=== PATIENT | female | born 1980 | race African-American/Black ===

== ENCOUNTER 2021-07-03 19:09 | Observation (INO) ==
[2021-07-03] MEDS ORDERED: SODIUM CHLORIDE 0.9% 1000ML 1,000 ML IV ONE (19:37)
[2021-07-03 19:57] LABS: Basophils # (auto) 0.01 K/uL (0-0.2); Basophils % (auto) 0.2 %; Eosinophils % (auto) 3.5 %; Hematocrit (blood only) 33.7 % (37-47); Immature Granulocytes # (auto) 0.01 K/uL (0.00-0.02); Immature Granulocytes % (auto) 0.2 %; Lymphocytes # (auto) 2.14 K/uL (1.2-3.4); Lymphocytes % (auto) 37.2 %; Mean Corpuscular Hemoglobin 26.4 pg (25-34); Mean Corpuscular Hgb Conc 32.6 g/dL (32-36); Mean Corpuscular Volume 80.8 fL (80-100); Mean Platelet Volume 10.6 fL (7.4-10.4); Monocytes # (auto) 0.49 K/uL (0.11-0.59); Monocytes % (auto) 8.5 %; Neutrophils # (auto) 2.91 K/uL (1.4-6.5); Neutrophils % (auto) 50.4 %; Platelet Count 260 K/uL (130-400); RDW Coefficient of Variation 15.1 % (11.5-14.5); RDW Standard Deviation 44.7 fL (36.4-46.3); Red Blood Count 4.17 M/uL (4.2-5.4); White Blood Count 5.76 K/uL (4.8-10.8)
[2021-07-03 20:07] LABS: Appearance Urine Clear (Clear); Bilirubin Urine Negative (Negative); Blood Urine Negative (Negative); Color Urine Yellow; Glucose Urine UA Negative (Negative); Ketones Urine Negative (Negative); Leukocyte Esterase Urine Negative (Negative); Nitrite Urine Negative (Negative); Protein Urine Negative (Negative); Specific Gravity Urine 1.023 (1.000-1.030); Urobilinogen Urine Negative (Negative); pH Urine 6.5 (4.5-7.5)
--- NOTE | 2021-07-03 20:07 | Emergency Department Note ---
Impression & Plan Hyperthyroidism, Chest pain, Palpitations, Leg edema ED Provider Note NAME: CLAIRE DELGADO AGE: 41 SEX: F : 1980 ARRIVES VIA: Walk-In INFORMANT: Patient ED PROVIDER(S): Galindo Castellon DO CHIEF COMPLAINT: palpitations and chest pain HPI: Patient is a 41-year-old female who presents to the ER for chest pain and palpitations. She notes the palpitations have been going on for the past 3 to 4 days. Chest pressure has been present for the past 24 hours. She was seen in [facility] and referred in. She just moved here recently to the area. She has a history of Graves' disease. She has not been taking any of her medications for thyroid in over 2 months. She denies any belly pain, nausea, vomiting, or diarrhea. No dysuria, urgency, or frequency. No other exacerbating or remitting factors. No arm or jaw pain. Patient denies diabetes, hypertension, hyperlipidemia, CAD, history of sudden at a young age, and smoking. She admits to mild edema in the lower extremities. ROS: See above HPI for pertinent positives & negatives. A total of 10 systems reviewed and were otherwise negative. PAST MEDICAL HISTORY:See Below PAST SURGICAL HISTORY:See Below FAMILY HISTORY:See Below SOCIAL HISTORY:See Below HOME MEDICATIONS:See Below ALLERGIES:See Below VITALS:See Below PHYSICAL EXAMINATION: GENERAL: Sitting up in bed, alert, well appearing, well nourished, no distress, non-toxic EYE EXAM: normal conjunctiva. OROPHARYNX: no exudate, no erythema, lips, buccal mucosa, and tongue normal and mucous membranes are moist NECK: supple, no nuchal rigidity, no adenopathy, non-tender LUNGS: Clear to auscultation. Normal chest wall mechanics HEART: no murmurs, S1 normal and S2 normal ABDOMEN: abdomen soft, non-tender, normo-active bowel sounds, no masses, no rebound or guarding. UPPER EXTREMITIES: upper extremities are grossly normal. LOWER EXTREMITIES: Left calf slightly larger than right. Pitting edema bilaterally NEURO EXAM: Normal sensorium, cranial nerves II-XII grossly intact, normal speech, no gross weakness of arms, no gross weakness of legs. MEDICAL DECISION MAKING: Patient is a 41-year-old female who presents ER for above-stated complaint. IV was established blood was obtained. She was referred in for thyroid storm. She was slightly tachycardic upon presentation has mild pitting edema. Labs show no significant leukocytosis. Mild anemia 11. BMP with mild hypokalemia at 3.3. LFTs bilirubin was unremarkable. Troponin was negative. Lipase negative. TSH was nearly undetectable and free T4 was 5. UA was clean. COVID was negative. She was given IV fluids. EKG was nondiagnostic. Discussed with Dr. Petty who in regards to setting her up with an outpatient follow-up versus observation as she does not have an established PCP. He elected to admit her for further work- up. Triage Nursing notes reviewed. Limited review of prior medical records performed Vital Signs: reviewed and remarkable for no significant abnormalities Differential diagnosis: Differential diagnoses includes but is not limited to acute coronary syndrome, myocardial infarction, pericarditis, pulmonary embolus, aortic dissection, pneumonia, pneumothorax, musculoskeletal, shingles, esophageal. ER treatment provided: See below Diagnostics interpreted by me: ECG: Sinus tachycardia rate of 102 Normal axis No PVCs QTC 448 Cardiac Monitoring: An order was placed for continuous cardiac monitoring. The monitor shows a rate of 96 with sinus rhythm. Laboratory studies: As stated above and show below. Imaging studies: Portable AP upright 1 view of the chest was unremarkable Consultation(s): Discussed with Dr. Vizcarra for further evaluation Procedures: none Critical Care: None Past Med/Surg History Social History Smoking Status: Current every day smoker Preferred Language: Hungarian Feels Safe at Home: Yes Allergies Allergies Allergy/AdvReac Type Severity Reaction Status Date / Time No Known Allergies Allergy Verified 07/03/21 20:38 Home Meds Home Medications Medication Instructions Recorded Confirmed Maria Esther Vitamin 1 tab PO DAILY 07/03/21 07/03/21 Huang Women's Daily Vitamin 1 tab PO DAILY 07/03/21 07/03/21 atenolol 25 mg tablet 25 mg PO DAILY 07/03/21 07/03/21 propylthiouracil 50 mg tablet 100 mg PO TID 07/03/21 07/03/21 Results & Data (ED) Vital Signs Vital Signs - 24 hr 07/03/21 19:15 07/03/21 20:00 07/03/21 20:26 Temperature 36.6 C Temperature Source Oral Pulse Rate 108 H 100 H Respiratory Rate 20 17 Respiratory Effort / Characteristics Non-Labored Spontaneous Respiratory Depth Normal Blood Pressure 140/77 152/74 H Blood Pressure Mean 98 100 Pulse Oximetry 99 100 98 Oxygen Delivery Method Room Air Room Air Sepsis New/Unexplained Change in Mental Status N/A Sepsis Action Taken by Nursing No Action Required 07/03/21 20:31 07/03/21 21:00 07/03/21 21:30 Temperature Temperature Source Pulse Rate 93 H 99 H 92 H Respiratory Rate 18 20 16 Respiratory Effort / Characteristics Respiratory Depth Blood Pressure 152/84 H 148/62 H 150/75 H Blood Pressure Mean 106 90 100 Pulse Oximetry 100 99 99 Oxygen Delivery Method Room Air Sepsis New/Unexplained Change in Mental Status Sepsis Action Taken by Nursing 07/03/21 22:00 07/03/21 23:00 Temperature Temperature Source Pulse Rate 90 92 H Respiratory Rate 20 20 Respiratory Effort / Characteristics Respiratory Depth Blood Pressure 135/78 124/88 Blood Pressure Mean 97 100 Pulse Oximetry 99 99 Oxygen Delivery Method Sepsis New/Unexplained Change in Mental Status Sepsis Action Taken by Nursing Laboratory Data Result diagrams: 07/03/21 19:32 07/03/21 19:32 Lab Results 07/03/21 07/03/21 07/03/21 Range/Units 19:32 19:32 19:32 WBC 5.76 (4.8-10.8) K/uL RBC 4.17 L (4.2-5.4) M/uL Hgb 11.0 L (12.0-16.0) g/dL Hct 33.7 L (37-47) % MCV 80.8 (80-100) fL MCH 26.4 (25-34) pg MCHC 32.6 (32-36) g/dL RDW Std Deviation 44.7 (36.4-46.3) fL RDW Coeff of Huy 15.1 H (11.5-14.5) % Plt Count 260 (130-400) K/uL MPV 10.6 H (7.4-10.4) fL Immature Gran % (Auto) 0.2 % Neut % (Auto) 50.4 % Lymph % (Auto) 37.2 % [place] % (Auto) 8.5 % Eos % (Auto) 3.5 % Baso % (Auto) 0.2 % Neut # (Auto) 2.91 (1.4-6.5) K/uL Lymph # (Auto) 2.14 (1.2-3.4) K/uL [place] # (Auto) 0.49 (0.11-0.59) K/uL Eos # (Auto) 0.20 (0-0.5) K/uL Baso # (Auto) 0.01 (0-0.2) K/uL Immature Gran # (Auto) 0.01 (0.00-0.02) K/uL D-Dimer (0-500) ug/L FEU Sodium 141 (136-145) mmol/L Potassium 3.3 L (3.5-5.1) mmol/L Chloride 111 H (98-107) mmol/L Carbon Dioxide 25 (21-32) mmol/L Anion Gap 5 (3-11) BUN 15 (6-23) mg/dl Creatinine 0.42 L (0.6-1.2) mg/dl Est Cr Clr Drug Dosing 204.5 ml/min Est GFR ( Amer) 148.6 ml/min Est GFR (Non-Af Amer) 128.2 ml/min BUN/Creatinine Ratio 35.7 H (10-20) Glucose 83 (70-99(Fasting)) mg/dl Calcium 9.1 (8.5-10.1) mg/dl Total Bilirubin 0.3 (0.2-1.0) mg/dl AST 22 (13-39) U/L ALT 24 (7-52) U/L Alkaline Phosphatase 60 (34-104) U/L Troponin I High Sens 7.4 (0-14) pg/ml Total Protein 6.5 (6.0-8.3) gm/dl Albumin 3.8 (3.4-5.0) gm/dl Globulin 2.7 (2.5-4.0) gm/dl Albumin/Globulin Ratio 1.4 (0.9-2) Lipase 28 (11-82) U/L TSH (0.300-4.500) uIu/ml Free T4 (0.61-1.60) ng/dl Urine Color Urine Appearance (Clear) Urine pH (4.5-7.5) Ur Specific [place] (1.000-1.030) Urine Protein (Negative) Urine Glucose (UA) (Negative) Urine Ketones (Negative) Urine Blood (Negative) Urine Nitrite (Negative) Urine Bilirubin (Negative) Urine Urobilinogen (Negative) Ur Leukocyte Esterase (Negative) SARS-CoV-2, RNA, NAAT (NEGATIVE) 07/03/21 07/03/21 07/03/21 Range/Units 19:32 19:32 19:35 WBC (4.8-10.8) K/uL RBC (4.2-5.4) M/uL Hgb (12.0-16.0) g/dL Hct (37-47) % MCV (80-100) fL MCH (25-34) pg MCHC (32-36) g/dL RDW Std Deviation (36.4-46.3) fL RDW Coeff of Huy (11.5-14.5) % Plt Count (130-400) K/uL MPV (7.4-10.4) fL Immature Gran % (Auto) % Neut % (Auto) % Lymph % (Auto) % [place] % (Auto) % Eos % (Auto) % Baso % (Auto) % Neut # (Auto) (1.4-6.5) K/uL Lymph # (Auto) (1.2-3.4) K/uL [place] # (Auto) (0.11-0.59) K/uL Eos # (Auto) (0-0.5) K/uL Baso # (Auto) (0-0.2) K/uL Immature Gran # (Auto) (0.00-0.02) K/uL D-Dimer 340 (0-500) ug/L FEU Sodium (136-145) mmol/L Potassium (3.5-5.1) mmol/L Chloride (98-107) mmol/L Carbon Dioxide (21-32) mmol/L Anion Gap (3-11) BUN (6-23) mg/dl Creatinine (0.6-1.2) mg/dl Est Cr Clr Drug Dosing ml/min Est GFR ( Amer) ml/min Est GFR (Non-Af Amer) ml/min BUN/Creatinine Ratio (10-20) Glucose (70-99(Fasting)) mg/dl Calcium (8.5-10.1) mg/dl Total Bilirubin (0.2-1.0) mg/dl AST (13-39) U/L ALT (7-52) U/L Alkaline Phosphatase (34-104) U/L Troponin I High Sens (0-14) pg/ml Total Protein (6.0-8.3) gm/dl Albumin (3.4-5.0) gm/dl Globulin (2.5-4.0) gm/dl Albumin/Globulin Ratio (0.9-2) Lipase (11-82) U/L TSH < 0.010 L (0.300-4.500) uIu/ml Free T4 4.93 H (0.61-1.60) ng/dl Urine Color Yellow Urine Appearance Clear (Clear) Urine pH 6.5 (4.5-7.5) Ur Specific [place] 1.023 (1.000-1.030) Urine Protein Negative (Negative) Urine Glucose (UA) Negative (Negative) Urine Ketones Negative (Negative) Urine Blood Negative (Negative) Urine Nitrite Negative (Negative) Urine Bilirubin Negative (Negative) Urine Urobilinogen Negative (Negative) Ur Leukocyte Esterase Negative (Negative) SARS-CoV-2, RNA, NAAT (NEGATIVE) 07/03/21 07/03/21 Range/Units 19:55 21:26 WBC (4.8-10.8) K/uL RBC (4.2-5.4) M/uL Hgb (12.0-16.0) g/dL Hct (37-47) % MCV (80-100) fL MCH (25-34) pg MCHC (32-36) g/dL RDW Std Deviation (36.4-46.3) fL RDW Coeff of Huy (11.5-14.5) % Plt Count (130-400) K/uL MPV (7.4-10.4) fL Immature Gran % (Auto) % Neut % (Auto) % Lymph % (Auto) % [place] % (Auto) % Eos % (Auto) % Baso % (Auto) % Neut # (Auto) (1.4-6.5) K/uL Lymph # (Auto) (1.2-3.4) K/uL [place] # (Auto) (0.11-0.59) K/uL Eos # (Auto) (0-0.5) K/uL Baso # (Auto) (0-0.2) K/uL Immature Gran # (Auto) (0.00-0.02) K/uL D-Dimer (0-500) ug/L FEU Sodium (136-145) mmol/L Potassium (3.5-5.1) mmol/L Chloride (98-107) mmol/L Carbon Dioxide (21-32) mmol/L Anion Gap (3-11) BUN (6-23) mg/dl Creatinine (0.6-1.2) mg/dl Est Cr Clr Drug Dosing ml/min Est GFR ( Amer) ml/min Est GFR (Non-Af Amer) ml/min BUN/Creatinine Ratio (10-20) Glucose (70-99(Fasting)) mg/dl Calcium (8.5-10.1) mg/dl Total Bilirubin (0.2-1.0) mg/dl AST (13-39) U/L ALT (7-52) U/L Alkaline Phosphatase (34-104) U/L Troponin I High Sens 7.6 (0-14) pg/ml Total Protein (6.0-8.3) gm/dl Albumin (3.4-5.0) gm/dl Globulin (2.5-4.0) gm/dl Albumin/Globulin Ratio (0.9-2) Lipase (11-82) U/L TSH (0.300-4.500) uIu/ml Free T4 (0.61-1.60) ng/dl Urine Color Urine Appearance (Clear) Urine pH (4.5-7.5) Ur Specific [place] (1.000-1.030) Urine Protein (Negative) Urine Glucose (UA) (Negative) Urine Ketones (Negative) Urine Blood (Negative) Urine Nitrite (Negative) Urine Bilirubin (Negative) Urine Urobilinogen (Negative) Ur Leukocyte Esterase (Negative) SARS-CoV-2, RNA, NAAT NEGATIVE (NEGATIVE) Administered Medications Hydrocortisone Sodium Succinate (Hydrocortisone Sod Succinate 100 Mg/2 Ml Vial) 100 mg IV TID [facility] Stop: 08/02/21 22:54 Last Admin: 07/03/21 23:13 Dose: 100 mg Documented by: [id number] Metoprolol Tartrate (Metoprolol Tartrate 1 Mg/Ml Vial) 2.5 mg IV Q6 [facility]; Protocol Stop: 08/03/21 00:00 Last Admin: 07/04/21 00:05 Dose: 2.5 mg Documented by: [id number] Propylthiouracil (Propylthiouracil 50 Mg Tab) 200 mg PO Q4H ZABRINA Stop: 08/02/21 22:54 Last Admin: 07/03/21 23:48 Dose: 200 mg Documented by: [id number] Discontinued Medications Sodium Chloride (Nss 1000ml) 1,000 mls @ 999 mls/hr IV .Q1H1M ONE Stop: 07/03/21 20:37 Last Infusion: 07/03/21 20:54 Dose: 0 mls/hr Documented by: [id number] Admin: 07/03/21 19:51 Dose: 999 mls/hr Documented by: [id number] Potassium Chloride (Potassium Chloride Crtab 20 Meq Tabcr) 40 meq PO NOW STA Stop: 07/03/21 20:43 Last Admin: 07/03/21 20:48 Dose: 40 meq Documented by: [id number] Propranolol HCl (Propranolol Hcl 80 Mg Tab) 80 mg PO NOW STA Stop: 07/03/21 22:57 Last Admin: 07/03/21 23:21 Dose: Not Given Documented by: [id number] Imaging Data Radiologist's Impression: Chest X-Ray 07/03/21 19:37 XR chest 1V portable CLINICAL HISTORY: Tachycardia. COMPARISON STUDY: No previous studies for comparison. FINDINGS: Lung volumes are normal. Lungs are clear. There is no pneumothorax or pleural effusion. There is borderline enlargement of the cardiac silhouette, ac centuated on this AP exam. Mediastinal contours are normal. There is no evidence for pulmonary edema. IMPRESSION: 1. No acute cardiopulmonary findings. 2. Borderline enlargement of the cardiac silhouette, accentuated on this AP exam. ACT 112: Negative or not required by law. Electronically signed by: Alden Paz M.D. 07/03/2021 8:12 PM Discharge Plan Visit Data Chief Complaint: Referred by Doctor Stated Complaint: [facility] SENT, THYROID CRISIS ED Provider: Galindo Castellon Discharge Problem: Hyperthyroidism, Chest pain, Palpitations, Leg edema Forms Stand Alone Forms: My [facility] [email or web address] Prescriptions Prescriptions: No Action propylthiouracil 50 mg tablet 100 mg PO TID RF: 0 atenolol 25 mg tablet 25 mg PO DAILY RF: 0 Maria Esther Vitamin 1 tab PO DAILY RF: 0 Huang Women's Daily Vitamin 1 tab PO DAILY RF: 0 Referrals Referrals: PCP,NO [Primary Care Provider] - Discharge Problem: Chest pain Qualifiers: Chest pain type: unspecified Qualified Code(s): R07.9 - Chest pain, unspecified
--- NOTE | 2021-07-03 20:15 | XRay Report ---
XR chest 1V portable CLINICAL HISTORY: Tachycardia. COMPARISON STUDY: No previous studies for comparison. FINDINGS: Lung volumes are normal. Lungs are clear. There is no pneumothorax or pleural effusion. The re is borderline enlargement of the cardiac silhouette, accentuated on this AP exam. Mediastinal cont ours are normal. There is no evidence for pulmonary edema. IMPRESSION: 1. No acute cardiopulmonary findings. 2. Borderline enlargement of the cardiac silhouette, accentuated on this AP exam. ACT 112: Negative or not required by law. Electronically signed by: Alden Paz M.D. 07/03/2021 8:12 PM
[2021-07-03 20:22] LABS: Albumin Globulin Ratio 1.4 (0.9-2); Albumin Level 3.8 gm/dl (3.4-5.0); BUN Creatinine Ratio 35.7 (10-20); Bilirubin,Total 0.3 mg/dl (0.2-1.0); Calcium 9.1 mg/dl (8.5-10.1); Creatinine Clr Calc Pharmacy 204.5 ml/min; Est GFR (African American) 148.6 ml/min; Est GFR (Non-African American) 128.2 ml/min; Globulin 2.7 gm/dl (2.5-4.0); Potassium 3.3 mmol/L (3.5-5.1); Total Protein 6.5 gm/dl (6.0-8.3)
[2021-07-03 20:31] LABS: D Dimer 340 ug/L FEU (0-500)
[2021-07-03] MEDS ORDERED: POTASSIUM CHLORIDE CRTAB 20 MEQ TABCR PO STA (20:42)
[2021-07-03 20:48] LABS: Thyroid Stimulating Hormone < 0.010 uIu/ml (0.300-4.500)
[2021-07-03 21:20] LABS: T4 Free Thyroxine 4.93 ng/dl (0.61-1.60)
[2021-07-03] MEDS ORDERED: CHOLESTYRAMINE LIGHT 4 GM PKT PO SCH (22:55)
[2021-07-03] MEDS ORDERED: HYDROCORTISONE SOD SUCCINATE 100 MG/2 ML VIAL IV SCH (22:55)
[2021-07-03] MEDS ORDERED: PROPRANOLOL HCL 80 MG TAB PO STA (22:56)
[2021-07-03] MEDS: propylthiouraciL 50 MG TAB PO SCH (23:48)
[2021-07-04] MEDS: METOPROLOL TARTRATE 1 MG/ML VIAL IV SCH ×2 (00:05→06:04)
[2021-07-04] MEDS ORDERED: ACETAMINOPHEN 325 MG TAB PO PRN (00:34)
[2021-07-04] MEDS ORDERED: NITROGLYCERIN SL 0.4 MG/TAB TAB SL PRN (00:34)
--- NOTE | 2021-07-04 01:33 | History and Physical Report ---
DATE OF ADMISSION: 07/03/2021. CHIEF COMPLAINT: Tachycardia, noncompliant with hyperthyroidism medications. HISTORY OF PRESENT ILLNESS: A 41-year-old female with past medical history significant for hyperthyroidism. The patient says she was diagnosed over 5 years ago. Not taking medications regularly. She says she forgets taking them and she is not taking her atenolol and propylthiouracil for the last few months, ongoing tobacco abuse. She moved to local area in February, trying to establish with the local doctors. Went to [facility] because she was having palpitations, some chest discomfort, shakiness and also she noticed some on and off shortness of breath for the last few days and also lower extremity edema for the last few days and was sent in here. Denies any fever, has some chills. She says she is sweating when she is sleeping. Currently, she is slightly tachycardic, afebrile, saturating okay. Resting comfortably. Denies any headache, no earache, no runny nose, no sore throat, no cough. Appetite is okay. No difficulty swallowing. Has some nausea. No vomiting, no abdominal pain, no diarrhea. No blood in stools or black stools. She says she is constantly micturating. Currently hemodynamically stable. ALLERGIES: No known drug allergies. PAST MEDICAL HISTORY: As mentioned above. PAST SURGICAL HISTORY: No past surgical history on file. MEDICATIONS: Supposed to be on atenolol and propylthiouracil. FAMILY HISTORY: Significant for diabetes, hypertension, cancer. SOCIAL HISTORY: Smokes half pack a day for last 21 years. Alcohol occasional. No drug use. REVIEW OF SYSTEMS: As per HPI. Rest of the review of systems is negative. PHYSICAL EXAMINATION: GENERAL: The patient is obese, not in acute distress. VITAL SIGNS: Temperature 36.6, pulse ranging from 108 to 90, respiratory rate 20, blood pressure 135/78, oxygen 99% on room air. HEENT: Pupils equal, round and reactive to light. Oral mucosa moist. NECK: No JVD, no neck masses. CARDIOVASCULAR: S1 and S2 heard. Tachycardia. No murmurs. RESPIRATORY: Normal AP diameter. No accessory muscle use. No wheezing, no crackles. ABDOMEN: Soft, bowel sounds present, nontender, no distention. CENTRAL NERVOUS SYSTEM: Cranial nerves II through XII are grossly intact, nonfocal. EXTREMITIES: Mild pedal edema, no erythema seen. LABORATORY DATA: WBC 5.7, hemoglobin 11, hematocrit 33.7, platelets 260. D- dimer 340. Sodium 141, potassium 3.3, chloride 111, CO2 of 25, BUN 15, creatinine 0.4, serum glucose 83, calcium 9.1, total bilirubin 0.3, AST 22, ALT 24, alkaline phosphatase 60. troponin high sensitivity 7.6, lipase 28. TSH less than 0.010, free T4 of 4.93. Urinalysis negative. SARS-CoV-2 rapid test negative. IMAGING DATA: Chest x-ray, no acute cardiopulmonary findings. EKG: Sinus tachycardia at a rate of 102. No acute ST changes seen. ASSESSMENT AND PLAN: This is a 41-year-old female who presents with thyrotoxicosis, noncompliant with medication. 1. Hyperthyroidism, thyrotoxicosis: The patient is noncompliant with her medications for a few months now. TSH is less than 0.01, free T4 is 4.93. Slightly tachycardic in the ER, but the patient says she has heart rates upto 140s at home sometimes. Will start her on propranolol 80 mg q.i.d. and propylthiouracil 200 mg q. 4 hours, Questran 4 g q.i.d., hydrocortisone IV 100 mg t.i.d. and closely monitor in tele floor. The patient does not seem to be in thyroid storm, but could be impending. Will discuss with endocrinology in the a.m. for further management and for medication at discharge. The patient says there is some mild edema in the lower extremities. Will also get echocardiogram to rule out any congestive heart failure and also will do thyroid ultrasound and follow the results. Closely monitor in tele floor. 2. Tobacco abuse: Needs counseling. 3. Deep venous thrombosis prophylaxis: Heparin subcutaneously. DISPOSITION: Closely monitor in the tele floor. Level 1 full code. Expect to discharge home and follow with family doctor. Job ID: [id number] [facility]
[2021-07-04] MEDS: propylthiouraciL 50 MG TAB PO SCH ×5 (03:11→23:00)
[2021-07-04 05:53] LABS: Eosinophils # (auto) 0.01 K/uL (0-0.5); Eosinophils % (auto) 0.2 %; Hemoglobin 9.7 g/dL (12.0-16.0); Immature Granulocytes # (auto) 0.01 K/uL (0.00-0.02); Immature Granulocytes % (auto) 0.2 %; Lymphocytes # (auto) 1.39 K/uL (1.2-3.4); Lymphocytes % (auto) 27.3 %; Mean Corpuscular Hemoglobin 26.1 pg (25-34); Mean Corpuscular Hgb Conc 32.3 g/dL (32-36); Mean Corpuscular Volume 80.9 fL (80-100); Mean Platelet Volume 10.4 fL (7.4-10.4); Monocytes # (auto) 0.23 K/uL (0.11-0.59); Monocytes % (auto) 4.5 %; Neutrophils # (auto) 3.45 K/uL (1.4-6.5); Neutrophils % (auto) 67.8 %; Platelet Count 239 K/uL (130-400); RDW Coefficient of Variation 15.2 % (11.5-14.5); RDW Standard Deviation 45.4 fL (36.4-46.3); Red Blood Count 3.71 M/uL (4.2-5.4); White Blood Count 5.09 K/uL (4.8-10.8)
[2021-07-04] MEDS: HEPARIN SOD 5,000 UNIT/0.5 ML VIAL SQ SCH ×3 (06:05→21:55)
[2021-07-04 06:34] LABS: BUN Creatinine Ratio 33.3 (10-20); Calcium 8.6 mg/dl (8.5-10.1); Creatinine Clr Calc Pharmacy 192.7 ml/min; Est GFR (African American) 145.3 ml/min; Est GFR (Non-African American) 125.3 ml/min; Magnesium 1.6 mg/dl (1.7-2.4); Potassium 4.1 mmol/L (3.5-5.1)
[2021-07-04] MEDS: CHOLESTYRAMINE LIGHT 4 GM PKT PO SCH ×3 (08:17→22:54)
[2021-07-04] MEDS: HYDROCORTISONE SOD 100 MG in SYRINGE 0 ML IV SCH ×3 (08:17→22:59)
[2021-07-04] MEDS ORDERED: METOPROLOL TARTRATE 1 MG/ML VIAL IV PRN (08:32)
[2021-07-04 09:27] LABS: Pregnancy Test, Serum Negative (Negative)
--- NOTE | 2021-07-04 10:51 | Ultrasound Report ---
THYROID ULTRASOUND CLINICAL HISTORY: graves disease, thyrotoxicosis COMPARISON STUDY: None. TECHNIQUE: Sonography of the thyroid gland was performed. FINDINGS: The right thyroid lobe measures 6 x 2.5 x 2.2 cm and the left measures 6 x 2.6 x 2.7 cm. Th e gland is heterogeneous, enlarged and hypervascular. The isthmus measures 0.9 cm in AP dimension. No discrete thyroid nodule is noted. Adjacent soft tissues are unremarkable. IMPRESSION: 1. Enlarged, heterogeneous and hypervascular thyroid gland. This suggests thyroiditis. 2. No discrete thyroid nodule. ACT 112: Negative or not required by law. Electronically signed by: Alden Paz M.D. 07/04/2021 10:50 AM
[2021-07-04] MEDS: NICOTINE 7 MG/24 HR TDSY TD SCH (11:52)
--- NOTE | 2021-07-04 12:28 | Hospitalist Progress Note ---
Date of Service July 04, 2021 Assessment & Plan (1) Hyperthyroidism: Plan: per Dr. Reina with addendum: 1. Hyperthyroidism, thyrotoxicosis: The patient is noncompliant with her medications for a few months now. TSH is less than 0.01, free T4 is 4.93. Slightly tachycardic in the ER, but the patient says she has heart rates upto 140s at home sometimes. Will start her on propranolol 80 mg q.i.d. and propylthiouracil 200 mg q. 4 hours, Questran 4 g q.i.d., hydrocortisone IV 100 mg t.i.d. and closely monitor in tele floor. The patient does not seem to be in thyroid storm, but could be impending. 07/04 does not meet criteria for thyroid storm discussed with Dr. Mikki Muir from [facility] recommend PTU 100mg q6h then resume usual home dose resume Atenolol, PRN Metoprolol IV continue Hydrocortisone for now repeat T4 in AM ff up with Isadora no signs of infection Thyroid US pending 2. Tobacco abuse: counselling done Nicotine patch 3. Deep venous thrombosis prophylaxis: SCDs ,plan of care discussed with patient in detail and at length all questions answered she is understanding, agreeable, comfortable with the plan of care Admission and Anticipated Discharge Date Admission Date: July 03, 2021 Subjective ff up for hyperthyroidism, etc seen resting in bed, comfortable states she feel ok overall reports mild generalized headache no chest pain, dyspnea, palpitations, dizziness no abdominal pain, nausea/vomiting, diarrhea, confusion no fever/chills no other symptoms Review of Systems Review of Systems: all noted and negative except for above Physical Exam Physical Exam: General- oriented x 3, not in distress, speaks in sentences with no effort or accessory muscle use Head- atraumatic Eyes- PERRL, EOMI, anicteric ENT- oropharynx clear no thyromegaly Neck- supple, no JVD, no adenopathy, no thyromegaly; carotids +2/2, no bruits appreciated Lungs- clear to auscultation bilaterally, no rales/wheezes Heart- mild tachycardia, regular rhythm; no murmur, no gallop, no rub appreciated Abdomen- normal bowel sounds, nondistended, soft, nontender, no masses or hepatosplenomegaly Extremities- no pretibial edema, no calf tenderness; peripheral pulses intact Neuro- alert, oriented x 3; CN 2-12 grossly intact; motor 5/5 bilaterally;sensation 100% on all extremities; no other gross focal neurologic deficits Skin- warm & dry Results & Data Results & Data ([facility]) Vital Signs (Past 12 Hours) Vital Signs Temp Pulse Resp BP Pulse Ox 07/04/21 07:23 36.8 C 100 H 17 129/70 94 07/04/21 06:02 130/70 07/04/21 06:00 101 H 07/04/21 03:25 36.7 C 97 H 18 131/76 98 07/04/21 01:08 37.1 C 95 H 18 123/62 95 all noted and reviewed including below
[2021-07-04] MEDS: ATENOLOL 25 MG TABLET PO SCH (12:51)
--- NOTE | 2021-07-04 22:57 | Electrocardiogram Report ---
Test Reason : Blood Pressure : / mmHG Vent. Rate : 102 BPM Atrial Rate : 102 BPM P-R Int : 146 ms QRS Dur : 092 ms QT Int : 344 ms P-R-T Axes : 053 026 056 degrees QTc Int : 448 ms Sinus tachycardia Otherwise normal ECG No previous ECGs available Confirmed by Jackson Loyd [id number]) on 07/04/2021 10:56:56 PM Referred By: REFERRED SELF Confirmed By:Jackson Loyd
[2021-07-05] MEDS: propylthiouraciL 50 MG TAB PO SCH (06:00)
[2021-07-05] MEDS: HEPARIN SOD 5,000 UNIT/0.5 ML VIAL SQ SCH (06:00)
[2021-07-05] MEDS: CHOLESTYRAMINE LIGHT 4 GM PKT PO SCH (06:02)
--- NOTE | 2021-07-05 06:49 | Ultrasound Report ---
BILATERAL LOWER EXTREMITY VENOUS DOPPLER CLINICAL HISTORY: leg edema, r/o DVT COMPARISON STUDY: No previous studies for comparison. TECHNIQUE: Sonography of the deep venous system of the bilateral lower extremities was performed. Co mpression and augmentation were evaluated. FINDINGS: The bilateral common femoral, superficial femoral and popliteal veins were compressible. A ugmentation was normal. Flow was shown within the deep calf vessels. IMPRESSION: No evidence of deep venous thrombus within the bilateral lower extremities. ACT 112: Negative or not required by law. Electronically signed by: Alden Paz M.D. 07/05/2021 6:48 AM
[2021-07-05 08:02] LABS: Hematocrit (blood only) 30.9 % (37-47); Hemoglobin 9.7 g/dL (12.0-16.0); Mean Corpuscular Hemoglobin 26.1 pg (25-34); Mean Corpuscular Hgb Conc 31.4 g/dL (32-36); Mean Corpuscular Volume 83.1 fL (80-100); Mean Platelet Volume 10.7 fL (7.4-10.4); Platelet Count 248 K/uL (130-400); RDW Coefficient of Variation 15.3 % (11.5-14.5); RDW Standard Deviation 46.9 fL (36.4-46.3); Red Blood Count 3.72 M/uL (4.2-5.4)
[2021-07-05 08:17] LABS: Anion Gap 5 (3-11); Blood Urea Nitrogen 12 mg/dl (6-23); Calcium 8.8 mg/dl (8.5-10.1); Carbon Dioxide 22 mmol/L (21-32); Chloride 114 mmol/L (98-107); Creatinine Clr Calc Pharmacy 216.8 ml/min; Est GFR (African American) > 150.0 ml/min; Est GFR (Non-African American) 130.3 ml/min; Glucose 125 mg/dl (70-99(Fasting)); Iron 31 mcg/dl (35-150); Potassium 3.5 mmol/L (3.5-5.1); Sodium 141 mmol/L (136-145); Transferrin 217 mg/dl (200-360)
[2021-07-05] MEDS: ATENOLOL 25 MG TABLET PO SCH (08:24)
[2021-07-05] MEDS: NICOTINE 7 MG/24 HR TDSY TD SCH (08:24)
[2021-07-05] MEDS: HYDROCORTISONE SOD 100 MG in SYRINGE 0 ML IV SCH (08:25)
[2021-07-05 08:31] LABS: Immature Granulocytes # (auto) 0.01 K/uL (0.00-0.02); Immature Granulocytes % (auto) 0.1 %; Lymphocytes # (auto) 2.41 K/uL (1.2-3.4); Lymphocytes % (auto) 33.5 %; Monocytes # (auto) 0.58 K/uL (0.11-0.59); Monocytes % (auto) 8.1 %; Neutrophils % (auto) 58.3 %
[2021-07-05 08:34] LABS: Ferritin 13.7 ng/ml (8-388)
[2021-07-05 08:39] LABS: Folate (Folic Acid) 15.5 ng/ml (>5.38)
[2021-07-05] MEDS ORDERED: FERROUS SULFATE 325 MG TAB PO SCH (09:00)
--- NOTE | 2021-07-05 12:33 | Hospitalist Progress Note ---
Date of Service July 05, 2021 delayed entry date of service noted above Assessment & Plan (1) Hyperthyroidism: Plan: per Dr. Reina with addendum: 1. Hyperthyroidism, thyrotoxicosis: The patient is noncompliant with her medications for a few months now. TSH is less than 0.01, free T4 is 4.93. Slightly tachycardic in the ER, but the patient says she has heart rates upto 140s at home sometimes. Will start her on propranolol 80 mg q.i.d. and propylthiouracil 200 mg q. 4 hours, Questran 4 g q.i.d., hydrocortisone IV 100 mg t.i.d. and closely monitor in tele floor. The patient does not seem to be in thyroid storm, but could be impending. does not meet criteria for thyroid storm discussed with Dr. Mikki Muir from [facility] recommend PTU 100mg q6h then resume usual home dose resume Atenolol, PRN Metoprolol IV continue Hydrocortisone for now repeat T4 in AM ff up with Endo 07/05 stable overall feels better resume usual PTU, Atenolol Hydrocortisone discontinued repeat T4 4.06 ff up with Endo in 2-3 weeks no signs of infection Thyroid US: FINDINGS: The right thyroid lobe measures 6 x 2.5 x 2.2 cm and the left measures 6 x 2.6 x 2.7 cm. The gland is heterogeneous, enlarged and hypervascular. The isthmus measures 0.9 cm in AP dimension. No discrete thyroid nodule is noted. Adjacent soft tissues are unremarkable. IMPRESSION: 1. Enlarged, heterogeneous and hypervascular thyroid gland. This suggests thyroiditis. 2. No discrete thyroid nodule. 2. Tobacco abuse: counselling done Nicotine patch 3. Iron Deficiency Anemia - Fe supplement Fe started - further work up as outpatient 4. Possible PreDM - fasting BG 125 further work up and management as outpatient 3. Deep venous thrombosis prophylaxis: SCDs ,plan of care discussed with patient in detail and at length all questions answered she is understanding, agreeable, comfortable with the plan of care Admission and Anticipated Discharge Date Admission Date: July 03, 2021 Subjective ff up for hyperthyroidism, etc. seen resting in bed, comfortable in good spirit states she feels much better overall no chest pain, dyspnea, palpitations, dizziness no other symptoms states she is ready and would like to be discharged Review of Systems Review of Systems: all noted and negative except for above Physical Exam Physical Exam: General- oriented x 3, not in distress, speaks in sentences with no effort or accessory muscle use Eyes- anicteric Neck- no JVD Lungs- clear breath sounds bilaterally, no rales/wheezes Heart- normal rate, regular rhythm; no murmurs Abdomen- normal bowel sounds, nondistended, soft, nontender Extremities- no pretibial edema, no calf tenderness Neuro- alert, oriented x 3; no gross focal neurologic deficits Skin- warm & dry Results & Data Results & Data ([facility]) Vital Signs (Past 12 Hours) Vital Signs Temp Pulse Pulse Pulse Resp BP BP 07/05/21 11:55 36.7 C 92 H 90 16 135/78 141/84 H 07/05/21 08:21 36.7 C 92 H 16 135/78 07/05/21 07:35 85 07/05/21 04:43 36.5 C 88 16 124/65 Pulse Ox 07/05/21 11:55 97 07/05/21 08:21 97 07/05/21 07:35 07/05/21 04:43 98 all noted and reviewed including below
--- NOTE | 2021-07-05 13:47 | Electrocardiogram Report ---
Test Reason : Blood Pressure : / mmHG Vent. Rate : 085 BPM Atrial Rate : 085 BPM P-R Int : 144 ms QRS Dur : 086 ms QT Int : 376 ms P-R-T Axes : 057 044 043 degrees QTc Int : 447 ms Normal sinus rhythm Possible Left atrial enlargement Borderline ECG When compared with ECG of 03-JUL-2021 19:25, No significant change was found Confirmed by Star Pan ([id number]) on 07/05/2021 1:47:09 PM Referred By: REFERRED SELF Confirmed By:Star Pan
[2021-07-05] MEDS ORDERED: propylthiouraciL 50 MG TAB PO SCH (14:00)
--- NOTE | 2021-07-16 15:14 | Discharge Summary ---
Date of Service July 16, 2021 Admission HPI Per Admitting Provider HISTORY OF PRESENT ILLNESS: A 41-year-old female with past medical history significant for hyperthyroidism. The patient says she was diagnosed over 5 years ago. Not taking medications regularly. She says she forgets taking them and she is not taking her atenolol and propylthiouracil for the last few months, ongoing tobacco abuse. She moved to local area in February, trying to establish with the local doctors. Went to [facility] because she was having palpitations, some chest discomfort, shakiness and also she noticed some on and off shortness of breath for the last few days and also lower extremity edema for the last few days and was sent in here. Denies any fever, has some chills. She says she is sweating when she is sleeping. Currently, she is slightly tachycardic, afebrile, saturating okay. Resting comfortably. Denies any headache, no earache, no runny nose, no sore throat, no cough. Appetite is okay. No difficulty swallowing. Has some nausea. No vomiting, no abdominal pain, no diarrhea. No blood in stools or black stools. She says she is constantly micturating. Currently hemodynamically stable. Admission Exam Per Admitting Provider GENERAL: The patient is obese, not in acute distress. VITAL SIGNS: Temperature 36.6, pulse ranging from 108 to 90, respiratory rate 20, blood pressure 135/78, oxygen 99% on room air. HEENT: Pupils equal, round and reactive to light. Oral mucosa moist. NECK: No JVD, no neck masses. CARDIOVASCULAR: S1 and S2 heard. Tachycardia. No murmurs. RESPIRATORY: Normal AP diameter. No accessory muscle use. No wheezing, no crackles. ABDOMEN: Soft, bowel sounds present, nontender, no distention. CENTRAL NERVOUS SYSTEM: Cranial nerves II through XII are grossly intact, nonfocal. EXTREMITIES: Mild pedal edema, no erythema seen. Principal Diagnosis HYPERTHYROIDISM Discharge Exam General- oriented x 3, not in distress, speaks in sentences with no effort or accessory muscle use Eyes- anicteric Neck- no JVD Lungs- clear breath sounds bilaterally, no rales/wheezes Heart- normal rate, regular rhythm; no murmurs Abdomen- normal bowel sounds, nondistended, soft, nontender Extremities- no pretibial edema, no calf tenderness Neuro- alert, oriented x 3; no gross focal neurologic deficits Skin- warm & dry Discharge Data Allergies Allergy/AdvReac Type Severity Reaction Status Date / Time No Known Allergies Allergy Verified 07/03/21 20:38 Ordered Studies 07/04/21 00:34 US thyroid Urgent 07/04/21 15:52 US venous doppler [facility] Urgent Hospital Course (1) Hyperthyroidism: per Dr. Reina with addendum: 1. Hyperthyroidism, thyrotoxicosis: The patient is noncompliant with her medications for a few months now. TSH is less than 0.01, free T4 is 4.93. Slightly tachycardic in the ER, but the patient says she has heart rates upto 140s at home sometimes. Will start her on propranolol 80 mg q.i.d. and propylthiouracil 200 mg q. 4 hours, Questran 4 g q.i.d., hydrocortisone IV 100 mg t.i.d. and closely monitor in tele floor. The patient does not seem to be in thyroid storm, but could be impending. does not meet criteria for thyroid storm discussed with Dr. Mikki Muir from [facility] recommend PTU 100mg q6h then resume usual home dose resume Atenolol, PRN Metoprolol IV continue Hydrocortisone for now repeat T4 in AM ff up with Endo 07/05 stable overall feels better resume usual PTU, Atenolol Hydrocortisone discontinued repeat T4 4.06 ff up with Endo in 2-3 weeks no signs of infection Thyroid US: FINDINGS: The right thyroid lobe measures 6 x 2.5 x 2.2 cm and the left measures 6 x 2.6 x 2.7 cm. The gland is heterogeneous, enlarged and hypervascular. The isthmus measures 0.9 cm in AP dimension. No discrete thyroid nodule is noted. Adjacent soft tissues are unremarkable. IMPRESSION: 1. Enlarged, heterogeneous and hypervascular thyroid gland. This suggests thyroiditis. 2. No discrete thyroid nodule. 2. Tobacco abuse: counselling done Nicotine patch 3. Iron Deficiency Anemia - Fe supplement Fe started - further work up as outpatient 4. Possible PreDM - fasting BG 125 further work up and management as outpatient plan of care discussed with patient in detail and at length all questions answered she is understanding, agreeable, comfortable with the plan of care strongly emphasized strict adherence to medications and follow up, to prevent complications, patient verbalized understanding and agreement Total Time Total Time Spent Total Time Spent (In Minutes): >30 MINUTES Discharge Plan Discharge Items Patient Disposition: Home - Self-Care Reason For Visit: REF BY DOC Discharge Diagnosis: HYPERTHYROIDISM Activity: Resume your previous activity Activity Comment: GRADUALLY TOLERATED Non-emergency contact: Primary Care Provider Call non-emergency contact if: you have any medication questions, your symptoms worsen, your pain is not controlled, your pain is worsening, your pain is unusual for you, your pain is concerning for you and you have a fever Follow-up/Referrals: Becca Tobias MD [Outside Practitioners] - (Date & Time 07/09/2021 2:00 PM [place] [address] ) Diet: Heart Healthy Addtl Attending Provider Instructions: PLEASE REFER TO YOUR NEW MEDICATION LIST AND FOLLOW INSTRUCTIONS CAREFULLY. YOUR NEW MEDICATIONS INCLUDE: FERROUS SULFATE- FOR MILD ANEMIA, IRON DEFICIENCY PLEASE MAKE SURE TO TAKE YOUR MEDICATIONS DIRECTED EVERYDAY TO PREVENT COMPLICATIONS, WORSENING OF MEDICAL CONDITION. PLEASE CALL YOUR PRIMARY CARE PHYSICIAN OR RETURN TO THE ER IMMEDIATELY IF WITH WORSENING OF SYMPTOMS, INCLUDING PALPITATIONS, SHORTNESS OF BREATH, DIZZINESS, SHAKINESS, LEG SWELLING, NAUSEA/VOMITING, DIARRHEA. FOLLOW UP WITH PRIMARY CARE PHYSICIAN IN 1 WEEK OUTLINED ABOVE. YOU ALSO NEED TO ESTABLISH WITH AN [employer] AND RECREATION WORKER AND FOLLOW CLOSELY. Pending Studies at Discharge: Yes Studies:: REPEAT THYROID FUNCTION TEST C/O PRIMARY CARE PHYSICIAN IN 1 WEEK Stand-Alone Forms: [facility], Work/School Release, Smoking Cessation Medications and DC Order Prescriptions: New ferrous sulfate 325 mg (65 mg iron) Tablet,Delayed Release (Dr/Ec) 325 mg PO DAILY 30 Days Qty: 30 RF: 0 Continued propylthiouracil 50 mg tablet 100 mg PO TID RF: 0 Maria Esther Vitamin 1 tab PO DAILY RF: 0 Huang Women's Daily Vitamin 1 tab PO DAILY RF: 0 atenolol 25 mg tablet 25 mg PO DAILY 30 Days Qty: 30 RF: 1 Discharge Orders: Discharge Order (Routine); Ordered 07/05/21 Ordered By: Casey Enriquez Admission Data Admit Date/Time: 07/03/21 22:55 Attending Provider: Casey Enriquez Admit Provider: Alex Madrid Primary Care Provider: PCP,NO Other Interventions: Discharge Summary Assessment (RN) Last Done: 07/05/21 11:55
== END 2021-07-05 13:20 | disposition home or self-care (01) ==
LOC: ED 19:09 → INTOOBSV 22:55 → 2S 22:55

== ENCOUNTER 2022-08-05 01:58 | Inpatient (IN) ==
--- NOTE | 2022-08-05 02:44 | Emergency Department Note ---
History of Present Illness General Chief complaint: Leg Injury/Pain Stated complaint: TINGLING ALL OVER BODY, PAIN IN RIGHT LEG Time Seen by Provider: 08/05/22 02:15 History of Present Illness This 42-year-old presents to the ER complaining of peripheral tingling today who had a thyroidectomy done on 08/[address] [facility] [address] Mace. Patient states she has been taking her Tums. Patient denies chest pain, dyspnea, numbness, weakness, flulike illness. Patient does have some mild cramps. She states she has been compliant with all her medicines. Home Medications Medication Instructions Recorded Confirmed Type ferrous sulfate 325 mg (65 mg 325 mg PO QAM 09/29/21 08/05/22 History iron) tablet methimazole 10 mg tablet 10 mg PO QAM 09/29/21 08/05/22 History atenolol 50 mg tablet 50 mg PO AMHS 08/05/22 08/05/22 History atomoxetine 25 mg capsule 25 mg PO QAM 08/05/22 08/05/22 History calcitriol 0.25 mcg capsule 0.25 mcg PO AMPM 08/05/22 08/05/22 History calcium carbonate 300 mg (750 mg) 600 mg PO BID 08/05/22 08/05/22 History chewable tablet (Tums E-X) hydroxyzine HCl 25 mg tablet 25 mg PO BID PRN Anxiety 08/05/22 08/05/22 History levothyroxine 100 mcg tablet 100 mcg PO DAILYBB 08/05/22 08/05/22 History multivit-iron 18 mg-folic acid 400 1 tab PO DAILY 08/05/22 08/05/22 History mcg-calcium 500 mg-minerals tablet (Daily Multiple For Women) multivitamin 1 tab PO DAILY 08/05/22 08/05/22 History oxycodone 5 mg tablet 5 mg PO Q6 PRN pain,severe 08/05/22 08/05/22 History sertraline 50 mg tablet 50 mg PO QAM 08/05/22 08/05/22 History Allergies Allergy/AdvReac Type Severity Reaction Status Date / Time rosa m Allergy Severe severe Verified 09/29/21 20:50 itching pineapple Allergy Intermediate Swelling Verified 09/29/21 20:50 of Lip/Tongue/Throat Past Med/Surg History Social History Smoking Status: Current every day smoker Second Hand Exposure: Yes; Do You Dip or Chew Tobacco: No; Hx Alcohol Use: Yes Hx Substance Use: No Preferred Language: Afghan Communication Ability: Effective Hot Tamale Worker Required: No Beliefs That Will Affect Care: None Current Living Situation: Family Feels Safe at Home: Yes Assistive Devices: None Review of Systems A total of 10 systems reviewed and were otherwise negative Physical Exam Vital Signs Vital Signs - 24 hr 08/05/22 02:02 08/05/22 03:00 Temperature 36.6 C Temperature Source Temporal Artery Scan Pulse Rate 61 54 L Respiratory Rate 20 Respiratory Effort / Characteristics Non-Labored Spontaneous Respiratory Depth Normal Blood Pressure 129/82 Blood Pressure Mean 97 Pulse Oximetry 98 Oxygen Delivery Method Room Air Sepsis Recent Fever Within 48 Hours No Sepsis New/Unexplained Change in Mental Status N/A Sepsis Action Taken by Nursing No Action Required VITALS: Vitals are noted on the nurse's note and reviewed by myself. Vital sig ns stable. GENERAL: Pleasant female speaking in full sentences with no obvious muscle twitching, in no acute distress, nondiaphoretic, well-developed well-nourished. SKIN: The skin was without rashes, erythema, edema, or bruising. There is no tenting of the skin. Capillary reflex less than 2 seconds. HEAD: Normocephalic atraumatic. EARS: External auditory canals clear, tympanic membranes pearly good without erythema or effusion bilaterally. EYES: Pupils equal round and reactive to light and accommodation. Conjunctivae without injection, sclerae without icterus. Extraocular movements intact. NOSE: Patent, turbinates without inflammation or discharge. No sinus tenderness. MOUTH: Mucous membranes moist. Pharynx without erythema or exudate. Uvula midline. Airway patent. Tongue does not deviate. NECK: Supple without nuchal rigidity. No lymphadenopathy. No thyromegaly. Cervical spine is nontender. No JVD. HEART: Regular rate and rhythm without murmurs gallops or rubs. LUNGS: Clear to auscultation bilaterally without wheezes, rales or rhonchi. No retractions or accessory muscle use. ABDOMEN: Positive bowel sounds x 4. Normal tympanic percussion. Soft, nontender, without masses or organomegaly. Aldana sign negative. No guarding or rebound tenderness. No CVA tenderness MUSCULOSKELETAL: No muscle atrophy, erythema, or edema noted. NEURO: Patient was alert and oriented to person place and time. Normal sensation to light and sharp touch. No focal neurological deficits. Course Administered Medications Magnesium Sulfate/Dextrose (Magnesium Sulfate / D5w) 1 gm in 100 mls @ 100 mls/hr IV Q1H ZABRINA Stop: 08/05/22 05:12 Last Admin: 08/05/22 04:18 Dose: 100 mls/hr Documented By: HENRI Discontinued Medications Calcium Gluconate () 1,000 mg in 60 mls @ 240 mls/hr IV Q15M ZABRINA Stop: 08/05/22 03:44 Last Admin: 08/05/22 04:00 Dose: 240 mls/hr Documented By: Infusion: 08/05/22 03:50 Dose: 0 mls/hr Documented By: Admin: 08/05/22 03:31 Dose: 240 mls/hr Documented By: HENRI Medical Decision Making Medical Records Attestation: I reviewed the patient's medical records. Home Medications Current Medication List: was personally reviewed by me Laboratory Data Attestation: I reviewed the patient's lab results. 08/05/22 02:32 08/05/22 02:32 Lab Results 08/05/22 08/05/22 08/05/22 Range/Units 02:32 02:32 02:32 WBC 8.85 (4.8-10.8) K/ul RBC 3.93 L (4.20-5.40) M/uL Hgb 11.6 L (12.0-16.0) g/dl Hct 35.2 L (37.0-47.0) % MCV 89.6 (80.0-100.0) fL MCH 29.5 (25.0-34.0) pg MCHC 33.0 (32.0-36.0) g/dL RDW Std Deviation 44.4 (36.4-46.3) fL RDW Coeff of Huy 13.4 (11.5-14.5) % Plt Count 280 (130-400) K/uL MPV 9.9 (9.4-12.4) fL Immature Gran % (Auto) 0.5 % Neut % (Auto) 55.8 % Lymph % (Auto) 36.3 % Hudson % (Auto) 4.5 % Eos % (Auto) 2.3 % Baso % (Auto) 0.6 % Neut # (Auto) 4.95 (1.40-6.50) K/uL Lymph # (Auto) 3.21 (1.2-3.4) K/uL Hudson # (Auto) 0.40 (0.11-0.59) K/uL Eos # (Auto) 0.20 (0-0.50) K/uL Baso # (Auto) 0.05 (0-0.2) K/uL Immature Gran # (Auto) 0.04 (0.01-0.20) K/uL Sodium 140 (136-145) mmol/L Potassium 3.6 (3.5-5.1) mmol/L Chloride 104 (98-107) mmol/L Carbon Dioxide 29 (21-32) mmol/L Anion Gap 7 (3-11) BUN 14 (6-23) mg/dl Creatinine 0.83 (0.6-1.2) mg/dl Est Cr Clr Drug Dosing 112.9 ml/min Est GFR ( Amer) 101.5 ml/min Est GFR (Non-Af Amer) 87.6 ml/min BUN/Creatinine Ratio 16.9 (10-20) Glucose 112 H (70-99(Fasting)) mg/dl Calcium 7.8 L (8.6-10.3) mg/dl Phosphorus 5.7 H (2.5-4.9) mg/dl Magnesium 1.6 L (1.7-2.4) mg/dl Total Bilirubin 0.3 (0.2-1.0) mg/dl AST 20 (13-39) U/L ALT 15 (7-52) U/L Alkaline Phosphatase 35 (34-104) U/L Total Creatine Kinase 381 H (26-192) U/L Troponin I High Sens 3.2 (0-14) pg/ml Total Protein 6.9 (6.0-8.3) gm/dl Albumin 3.8 (3.4-5.0) gm/dl Globulin 3.1 (2.5-4.0) gm/dl Albumin/Globulin Ratio 1.2 (0.9-2) TSH 14.304 H (0.300-4.500) uIu/ml Free T4 0.83 (0.61-1.60) ng/dl PTH Intact (12.0-88.0) pg/ml SARS-CoV-2, RNA, NAAT (NEGATIVE) 08/05/22 08/05/22 Range/Units 02:35 02:50 WBC (4.8-10.8) K/ul RBC (4.20-5.40) M/uL Hgb (12.0-16.0) g/dl Hct (37.0-47.0) % MCV (80.0-100.0) fL MCH (25.0-34.0) pg MCHC (32.0-36.0) g/dL RDW Std Deviation (36.4-46.3) fL RDW Coeff of Huy (11.5-14.5) % Plt Count (130-400) K/uL MPV (9.4-12.4) fL Immature Gran % (Auto) % Neut % (Auto) % Lymph % (Auto) % Hudson % (Auto) % Eos % (Auto) % Baso % (Auto) % Neut # (Auto) (1.40-6.50) K/uL Lymph # (Auto) (1.2-3.4) K/uL Hudson # (Auto) (0.11-0.59) K/uL Eos # (Auto) (0-0.50) K/uL Baso # (Auto) (0-0.2) K/uL Immature Gran # (Auto) (0.01-0.20) K/uL Sodium (136-145) mmol/L Potassium (3.5-5.1) mmol/L Chloride (98-107) mmol/L Carbon Dioxide (21-32) mmol/L Anion Gap (3-11) BUN (6-23) mg/dl Creatinine (0.6-1.2) mg/dl Est Cr Clr Drug Dosing ml/min Est GFR ( Amer) ml/min Est GFR (Non-Af Amer) ml/min BUN/Creatinine Ratio (10-20) Glucose (70-99(Fasting)) mg/dl Calcium (8.6-10.3) mg/dl Phosphorus (2.5-4.9) mg/dl Magnesium (1.7-2.4) mg/dl Total Bilirubin (0.2-1.0) mg/dl AST (13-39) U/L ALT (7-52) U/L Alkaline Phosphatase (34-104) U/L Total Creatine Kinase (26-192) U/L Troponin I High Sens (0-14) pg/ml Total Protein (6.0-8.3) gm/dl Albumin (3.4-5.0) gm/dl Globulin (2.5-4.0) gm/dl Albumin/Globulin Ratio (0.9-2) TSH (0.300-4.500) uIu/ml Free T4 (0.61-1.60) ng/dl PTH Intact 14.4 (12.0-88.0) pg/ml SARS-CoV-2, RNA, NAAT NEGATIVE (NEGATIVE) Imaging Data Attestation: I personally reviewed and interpreted this imaging study as follows: MDM Narrative Prior records/ancillary studies reviewed and summarized above. Nursing notes reviewed. Additional history obtained from family. The patient's history was concerning for tingling after thyroid surgery. Differential diagnosis: Etiologies such as complication of thyroid surgery, hypocalcemia, parathyroid problem, metabolic, infection, hypo/hyperglycemia, electrolyte abnormalities, cardiac sources, intracerebral event, toxicologic, neurologic, as well as others were entertained. Physical examination: As above. ER treatment provided: IV Lock An order was placed for continuous cardiac monitoring. The monitor shows a rate of 60-100 with a sinus rhythm per my interpretation. IV fluids, magnesium and calcium were given Patient's records from [facility] were reviewed On reassessment the patient felt better. Diagnostics interpretation by me: ECG: Ordered for tingling EKG: Normal sinus, normal intervals, no acute ST-T wave changes. Impression sinus bradycardia interval interpreted by myself I think arrhythmia is unlikely. EKG shows normal sinus rhythm with no interval abnormalities such as QT prolongation or WPW. There are no findings to suggest Brugada syndrome. Cardiac monitoring in the emergency department reveals no tachycardic or bradycardic dysrhythmia. Hypertrophic cardiomyopathy was considered but there are no clear historical elements pointing toward this. EKG is not suggestive. The QRS voltage is not extremely large and there are no suggestive Q waves. The labs Independently Interpreted by myself revealed low magnesium and calcium this is replaced as above Imaging studies: Chest x-ray with no acute consolidation, pneumothorax or free air per my independent interpretation Consultation: A consultation was placed with ENT at [facility], Dr Mccoy. The case was discussed and diagnostics were reviewed. She recommends replacing the calcium and admitting for 12 hours and rechecking the electrolytes. Exam and history seem consistent with hypocalcemia and hypomagnesia most likely from recent surgery. Electrolytes replaced as above. ENT was consulted at [facility] and recommends admission and repeat labs in 12 hours to make sure she is increasing her calcium not dropping her calcium. Medicine consulted and the case discussed. Patient will be admitted to the medical team. By the evaluation outlined above emergent etiologies such as infection, cardiac sources, intracerebral event, toxologic, neurologic, abnormalities blood glu cose, metabolic, as well as others were deemed relatively unlikely. The pt informed about the findings as listed above. All questions were answered and pleased with the treatment. The chart was completed utilizing [employer] Speech voice recognition software. Grammatical errors, random word insertions, pronoun errors, and incomplete sentences are an occassional consequence of this system due to software limitations, ambient noise, and hardware issues. Any formal questions or concerns about the content, text, or information contained within the body of this dictation should be directly addressed to the physician operations assistant for clarification. Impression & Plan Hypocalcemia, Hypomagnesemia, Paresthesias, H/O thyroidectomy Discharge Plan Visit Data Chief Complaint: Leg Injury/Pain Stated Complaint: TINGLING ALL OVER BODY, PAIN IN RIGHT LEG ED Provider: Yashira Mcghee ED Midlevel Provider: Deidre Medina Discharge Problem: Hypocalcemia, Hypomagnesemia, Paresthesias, H/O thyroidectomy Patient Disposition: Admitted As Inpatient Condition: Good Forms Stand Alone Forms: [facility] Prescriptions Prescriptions: No Action ferrous sulfate 325 mg (65 mg iron) tablet 325 mg PO QAM methimazole 10 mg tablet 10 mg PO QAM levothyroxine 100 mcg tablet 100 mcg PO DAILYBB Rx Instructions: take at least 30 min prior to breakfast or other meds oxycodone 5 mg tablet 5 mg PO Q6 PRN (Reason: pain,severe) Rx Instructions: take up to 5 days start 08/02/22 end date 08/07/22 atenolol 50 mg tablet 50 mg PO AMHS calcium carbonate [Tums E-X] 300 mg (750 mg) Tablet,Chewable 600 mg PO BID Rx Instructions: take 2 tablets at noon & in the evening for 14 days start 08/02/22 end date 08/16/22 calcitriol 0.25 mcg capsule 0.25 mcg PO AMPM Rx Instructions: take for 14 days start 08/02/22 end date 08/16/22 hydroxyzine HCl 25 mg tablet 25 mg PO BID PRN (Reason: Anxiety) sertraline 50 mg tablet 50 mg PO QAM multivitamin [Daily Vitamin] Tablet 1 tab PO DAILY Rx Instructions: AFIA vitamin atomoxetine 25 mg capsule 25 mg PO QAM Daily Multiple For Women 18 mg iron-400 mcg-500 mg Ca Tablet 1 tab PO DAILY Rx Instructions: ROBYN womens daily vitamin Referrals Referrals: PCP,NO [Physician] -
[2022-08-05 02:47] LABS: Basophils # (auto) 0.05 K/uL (0-0.2); Basophils % (auto) 0.6 %; Eosinophils % (auto) 2.3 %; Hematocrit (blood only) 35.2 % (37.0-47.0); Hemoglobin 11.6 g/dl (12.0-16.0); Immature Granulocytes # (auto) 0.04 K/uL (0.01-0.20); Immature Granulocytes % (auto) 0.5 %; Lymphocytes # (auto) 3.21 K/uL (1.2-3.4); Lymphocytes % (auto) 36.3 %; Mean Corpuscular Hemoglobin 29.5 pg (25.0-34.0); Mean Corpuscular Volume 89.6 fL (80.0-100.0); Mean Platelet Volume 9.9 fL (9.4-12.4); Monocytes % (auto) 4.5 %; Neutrophils # (auto) 4.95 K/uL (1.40-6.50); Neutrophils % (auto) 55.8 %; Platelet Count 280 K/uL (130-400); RDW Coefficient of Variation 13.4 % (11.5-14.5); RDW Standard Deviation 44.4 fL (36.4-46.3); Red Blood Count 3.93 M/uL (4.20-5.40); White Blood Count 8.85 K/ul (4.8-10.8)
[2022-08-05 03:05] LABS: Albumin Globulin Ratio 1.2 (0.9-2); Albumin Level 3.8 gm/dl (3.4-5.0); BUN Creatinine Ratio 16.9 (10-20); Bilirubin,Total 0.3 mg/dl (0.2-1.0); Calcium 7.8 mg/dl (8.6-10.3); Creatinine Clr Calc Pharmacy 112.9 ml/min; Est GFR (African American) 101.5 ml/min; Est GFR (Non-African American) 87.6 ml/min; Globulin 3.1 gm/dl (2.5-4.0); Magnesium 1.6 mg/dl (1.7-2.4); Phosphorus 5.7 mg/dl (2.5-4.9); Potassium 3.6 mmol/L (3.5-5.1); Total Protein 6.9 gm/dl (6.0-8.3)
[2022-08-05 03:11] LABS: Troponin I High Sensitivity 3.2 pg/ml (0-14)
[2022-08-05 03:20] LABS: Thyroid Stimulating Hormone 14.304 uIu/ml (0.300-4.500)
[2022-08-05] MEDS: CALCIUM GLUCONATE 1,000 MG/60 ML BAG IV SCH ×2 (03:31→04:00)
[2022-08-05 03:54] LABS: T4 Free Thyroxine 0.83 ng/dl (0.61-1.60)
[2022-08-05] MEDS: MAGNESIUM SULFATE / D5W 1 GM/100 ML BAG IV SCH ×2 (04:18→06:08)
[2022-08-05] MEDS ORDERED: ACETAMINOPHEN 1,000 MG/100 ML VIAL IV STA (04:32)
[2022-08-05] MEDS ORDERED: SODIUM CHLORIDE 0.9% 1000ML 1,000 ML IV STA (04:35)
--- NOTE | 2022-08-05 05:53 | History & Physical Report ---
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 Medical telemetry Increase from Tums regimen from twice daily to 3 times daily dosing for now Recheck electrolytes after 12 hours as per [facility] ENT recommendation (Dr. Mccoy) as per ER provider. Contact patient's [facility] boil off worker via [place] text for additional recommendations (Miss Gloria Espitia PA-C) if hypocalcemia and hyperphosphatemia unimproved. Monitor for CPK response to IVF RLE venous Dopplers rule out DVT Nicotine patch as needed DVT prophylaxis. SCDs if no LE DVT Full code Text document was generated using [employer] voice recognition software. It may contain grammatical or spelling errors. Kindly contact undersigned for clarification of any documentation item in question. History of Present Illness Chief Complaint: Tingling all over, transient right leg pain Primary Care Provider: Becca Tobias MD History obtained from patient, family, and records. Medical history significant for Graves' disease status post recent total thyroidectomy, postsurgical hypothyroidism, prediabetes, anxiety/mood disorder, ongoing tobacco abuse. 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 Recent overnight confinement at [facility] under ENT service for total thyroidectomy for Graves' disease. Patient discharged on new levothyroxine Rx for postsurgical hypothyroidism and Tums for possible hypocalcemia. Patient instructed to watch out for hypocalcemia manifesting as tingling, numbness symptoms; bleeding and infection. Last night, patient noted generalized tingling despite compliance with Tums regimen. No actual chest pain, SOB, neck pain. Transient right leg pain. Patient consulted ER for worsening symptoms. Patient currently feels much better after IV calcium administration at the ER. 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 Allergies Allergy/AdvReac Type Severity Reaction Status Date / Time rosa m Allergy Severe severe Verified 09/29/21 20:50 itching pineapple Allergy Intermediate Swelling Verified 09/29/21 20:50 of Lip/Tongue/Throat Home Medications Medication Instructions Recorded Confirmed Type ferrous sulfate 325 mg (65 mg 325 mg PO QAM 09/29/21 08/05/22 History iron) tablet methimazole 10 mg tablet 10 mg PO QAM 09/29/21 08/05/22 History atenolol 50 mg tablet 50 mg PO AMHS 08/05/22 08/05/22 History atomoxetine 25 mg capsule 25 mg PO QAM 08/05/22 08/05/22 History calcitriol 0.25 mcg capsule 0.25 mcg PO AMPM 08/05/22 08/05/22 History calcium carbonate 300 mg (750 mg) 600 mg PO BID 08/05/22 08/05/22 History chewable tablet (Tums E-X) hydroxyzine HCl 25 mg tablet 25 mg PO BID PRN Anxiety 08/05/22 08/05/22 History levothyroxine 100 mcg tablet 100 mcg PO DAILYBB 08/05/22 08/05/22 History multivit-iron 18 mg-folic acid 400 1 tab PO DAILY 08/05/22 08/05/22 History mcg-calcium 500 mg-minerals tablet (Daily Multiple For Women) multivitamin 1 tab PO DAILY 08/05/22 08/05/22 History oxycodone 5 mg tablet 5 mg PO Q6 PRN pain,severe 08/05/22 08/05/22 History sertraline 50 mg tablet 50 mg PO QAM 08/05/22 08/05/22 History Past Med/Surg History Social History Smoking Status: Current every day smoker Second Hand Exposure: Yes; Do You Dip or Chew Tobacco: No; Hx Alcohol Use: Yes Hx Substance Use: No Preferred Language: Bengali Communication Ability: Effective Postdoctoral Fellow Required: No Beliefs That Will Affect Care: None Current Living Situation: Family Feels Safe at Home: Yes Assistive Devices: None Review of Systems Review of Systems: As per HPI, all other systems reviewed and negative Physical Exam Physical Exam: GENERAL: Comfortable, morbidly obese, pleasant, no respiratory distress SKIN: Normal color, warm HEENT: [place] palpebral conjunctivae, no ptosis, dry buccal mucosa NECK : Supple, short neck, no tenderness CHEST : CTA, no tenderness HEART : Bradycardic, no obvious murmurs ABDOMEN: Some distention, nontender EXTREMITIES : Minimal LE swelling, no LE tenderness, no other conspicuous deformities noted NEUROLOGIC : Coherent, no facial asymmetry, no other gross focality Results & Data Results & Data Vital Signs (Past 12 Hours) Vital Signs Temp Pulse Resp BP Pulse Ox O2 Del Method 08/05/22 05:02 60 18 137/74 98 Room Air 08/05/22 03:00 54 L 08/05/22 02:02 36.6 C 61 20 129/82 98 Room Air Laboratory Results Laboratory Results WBC 8.85 K/ul (4.8-10.8) 08/05/22 02:32 RBC 3.93 M/uL (4.20-5.40) L 08/05/22 02:32 Hgb 11.6 g/dl (12.0-16.0) L 08/05/22 02:32 Hct 35.2 % (37.0-47.0) L 08/05/22 02:32 MCV 89.6 fL (80.0-100.0) 08/05/22 02:32 MCH 29.5 pg (25.0-34.0) 08/05/22 02:32 MCHC 33.0 g/dL (32.0-36.0) 08/05/22 02:32 RDW Std Deviation 44.4 fL (36.4-46.3) 08/05/22 02:32 RDW Coeff of Huy 13.4 % (11.5-14.5) 08/05/22 02:32 Plt Count 280 K/uL (130-400) 08/05/22 02:32 MPV 9.9 fL (9.4-12.4) 08/05/22 02:32 Immature Gran % (Auto) 0.5 % 08/05/22 02:32 Neut % (Auto) 55.8 % 08/05/22 02:32 Lymph % (Auto) 36.3 % 08/05/22 02:32 [place] % (Auto) 4.5 % 08/05/22 02:32 Eos % (Auto) 2.3 % 08/05/22 02:32 Baso % (Auto) 0.6 % 08/05/22 02:32 Neut # (Auto) 4.95 K/uL (1.40-6.50) 08/05/22 02:32 Lymph # (Auto) 3.21 K/uL (1.2-3.4) 08/05/22 02:32 [place] # (Auto) 0.40 K/uL (0.11-0.59) 08/05/22 02:32 Eos # (Auto) 0.20 K/uL (0-0.50) 08/05/22 02:32 Baso # (Auto) 0.05 K/uL (0-0.2) 08/05/22 02:32 Immature Gran # (Auto) 0.04 K/uL (0.01-0.20) 08/05/22 02:32 Sodium 140 mmol/L (136-145) 08/05/22 02:32 Potassium 3.6 mmol/L (3.5-5.1) 08/05/22 02:32 Chloride 104 mmol/L (98-107) 08/05/22 02:32 Carbon Dioxide 29 mmol/L (21-32) 08/05/22 02:32 Anion Gap 7 (3-11) 08/05/22 02:32 BUN 14 mg/dl (6-23) 08/05/22 02:32 Creatinine 0.83 mg/dl (0.6-1.2) 08/05/22 02:32 Est Cr Clr Drug Dosing 112.9 ml/min 08/05/22 02:32 Est GFR ( Amer) 101.5 ml/min 08/05/22 02:32 Est GFR (Non-Af Amer) 87.6 ml/min 08/05/22 02:32 BUN/Creatinine Ratio 16.9 (10-20) 08/05/22 02:32 Glucose 112 mg/dl (70-99(Fasting)) H 08/05/22 02:32 Calcium 7.8 mg/dl (8.6-10.3) L 08/05/22 02:32 Phosphorus 5.7 mg/dl (2.5-4.9) H 08/05/22 02:32 Magnesium 1.6 mg/dl (1.7-2.4) L 08/05/22 02:32 Total Bilirubin 0.3 mg/dl (0.2-1.0) 08/05/22 02:32 AST 20 U/L (13-39) 08/05/22 02:32 ALT 15 U/L (7-52) 08/05/22 02:32 Alkaline Phosphatase 35 U/L (34-104) 08/05/22 02:32 Total Creatine Kinase 381 U/L (26-192) H 08/05/22 02:32 Troponin I High Sens 3.2 pg/ml (0-14) 08/05/22 02:32 Total Protein 6.9 gm/dl (6.0-8.3) 08/05/22 02:32 Albumin 3.8 gm/dl (3.4-5.0) 08/05/22 02:32 Globulin 3.1 gm/dl (2.5-4.0) 08/05/22 02:32 Albumin/Globulin Ratio 1.2 (0.9-2) 08/05/22 02:32 TSH 14.304 uIu/ml (0.300-4.500) H 08/05/22 02:32 Free T4 0.83 ng/dl (0.61-1.60) 08/05/22 02:32 PTH Intact 14.4 pg/ml (12.0-88.0) 08/05/22 02:50 SARS-CoV-2, RNA, NAAT NEGATIVE (NEGATIVE) 08/05/22 02:35 Diagnostic Findings Chest x-ray as per my interpretation borderline cardiomegaly EKG as per my interpretation : Rate 55, sinus bradycardia, normal axis, no ischemia
--- NOTE | 2022-08-05 06:54 | XRay Report ---
XR chest 1V portable CLINICAL HISTORY: Weakness. COMPARISON STUDY: Chest radiograph September 29, 2021. FINDINGS: There is no pneumothorax. There may be trace bilateral pleural effusions. There is pulmonar y vascular congestion without overt pulmonary edema. Cardiac size is at upper limits of normal. No co nsolidation to suggest pneumonia. IMPRESSION: 1. Pulmonary vascular congestion without overt pulmonary edema. 2. Suspected trace bilateral pleural effusions. . ACT 112: Negative or not required by law. Electronically signed by: Alden Paz M.D. 08/05/2022 6:52 AM
--- NOTE | 2022-08-05 08:26 | Ultrasound Report ---
RIGHT LOWER EXTREMITY VENOUS DOPPLER CLINICAL HISTORY: Right lower extremity pain. COMPARISON STUDY: Bilateral lower extremity venous Doppler ultrasound July 04, 2021. TECHNIQUE: Sonography of the deep venous system of the right lower extremity was performed. Compress ion and augmentation were evaluated. FINDINGS: The right common femoral, superficial femoral and popliteal veins were compressible. Augme ntation was normal. Flow was shown within the deep calf vessels. IMPRESSION: No evidence of deep venous thrombus within the right lower extremity. ACT 112: Negative or not required by law. Electronically signed by: Alden Paz M.D. 08/05/2022 8:25 AM
--- NOTE | 2022-08-05 09:16 | Electrocardiogram Report ---
Test Reason : Blood Pressure : / mmHG Vent. Rate : 057 BPM Atrial Rate : 057 BPM P-R Int : 154 ms QRS Dur : 078 ms QT Int : 432 ms P-R-T Axes : 046 014 027 degrees QTc Int : 420 ms Sinus bradycardia Otherwise normal ECG When compared with ECG of 29-SEP-2021 20:21, No significant change was found Confirmed by Matthew Reyna ([id number]) on 08/05/2022 9:15:33 AM Referred By: REFERRED SELF Confirmed By:Matthew Reyna
[2022-08-05] MEDS ORDERED: NON-FORMULARY MEDICATION (Multivitamin Tablet) PO SCH (10:04)
[2022-08-05] MEDS ORDERED: MoRPHine SULFATE 4 MG/ML 1 ML CARP\\VIAL IV PRN (10:04)
[2022-08-05] MEDS ORDERED: PROMETHAZINE HCL 12.5 MG in SODIUM CHLORIDE 0.9% 50 ML IV PRN (10:04)
[2022-08-05] MEDS ORDERED: hydrOXYzine HCl 25 MG TAB PO PRN (10:04)
[2022-08-05] MEDS ORDERED: methIMAzole 5 MG TABLET PO SCH (10:04)
[2022-08-05] MEDS ORDERED: ATENOLOL 50 MG TABLET PO SCH (10:15)
[2022-08-05] MEDS ORDERED: CALCIUM CARBONATE 1250MG TAB PO SCH ×2 (10:30→14:00)
[2022-08-05] MEDS ORDERED: LEVOTHYROXINE SODIUM 100 MCG TABLET PO SCH (10:30)
[2022-08-05] MEDS: SERTRALINE HCL 50 MG TABLET PO SCH ×3 (12:28→20:26)
[2022-08-05] MEDS: CALCITRIOL 0.25 MCG CAPSULE PO SCH ×2 (12:28→20:27)
[2022-08-05] MEDS: CEROVITE ADV FORMULA TAB PO SCH (12:28)
[2022-08-05] MEDS: ATOMOXETINE HCL 25 MG CAPSULE PO SCH (12:28)
[2022-08-05] MEDS: FERROUS SULFATE 325 MG TAB PO SCH (12:29)
[2022-08-05] MEDS: oxyCODONE HCL IR 5 MG TAB (IMMEDIATE RELEASE) PO PRN (13:09)
[2022-08-05] MEDS: LEVOTHYROXINE SODIUM 100 MCG TABLET PO SCH (13:42)
[2022-08-05] MEDS ORDERED: Nursing to Pharmacy Communication SCH (13:45)
[2022-08-05] MEDS ORDERED: SODIUM CHLORIDE 0.9% 500 ML IV SCH (14:00)
[2022-08-05] MEDS ORDERED: SODIUM CHLORIDE 0.9% 1000ML 1,000 ML IV SCH (14:00)
[2022-08-05 14:55] LABS: Albumin Level 3.6 gm/dl (3.4-5.0); BUN Creatinine Ratio 13.2 (10-20); Calcium 7.4 mg/dl (8.6-10.3); Est GFR (African American) 90.8 ml/min; Est GFR (Non-African American) 78.4 ml/min; Phosphorus 4.8 mg/dl (2.5-4.9); Potassium 3.8 mmol/L (3.5-5.1)
[2022-08-05] MEDS: ATENOLOL 50 MG TABLET PO SCH (20:26)
[2022-08-05] MEDS ORDERED: STAT IV STA ×2 (21:07→21:19)
[2022-08-05] MEDS ORDERED: CALCIUM GLUCONATE 10% 1,000 MG in DEXTROSE 5% 50 ML IV ONE (21:07)
[2022-08-05] MEDS ORDERED: CALCIUM GLUCONATE 10% 2,000 MG in DEXTROSE 5% 50 ML IV ONE (21:19)
--- NOTE | 2022-08-05 21:19 | Communication Note ---
Date of Service: August 05, [address] Jimenez (Nephrology) recommended Calcium carbonate 3125 mg p.o. qid daily and initiating daily cholecalciferol. Additional calcium gluconate IV as needed
--- NOTE | 2022-08-05 21:59 | Consultation Report ---
NEPHROLOGY CONSULTATION NOTE REASON FOR CONSULTATION: Hypocalcemia. HISTORY OF PRESENT ILLNESS: The patient is a 42-year-old female who has Graves' disease and she had total thyroidectomy done on 08/01/2022 at [facility]. She was discharged home with instruction about levothyroxine treatment as well as taking Tums. According to the patient, she was taking massive number of Tums to the point she could not even tell me how many times she was taking. Last night, the patient noted generalized tingling despite compliance with Tums regimen after which she came to the Emergency Department. Her calcium is low at 7.8. Previously, she never had issues with low calcium. Magnesium is also slightly low at 1.7 and phosphorus is elevated at 5.7. Since being admitted, she has received IV calcium as well as IV magnesium. She does not have tingling right now. PAST MEDICAL AND SURGICAL HISTORY: Includes total thyroidectomy for Graves' disease, anxiety, ADHD. FAMILY HISTORY: Negative for renal disease or dialysis. PERSONAL AND SOCIAL HISTORY: Occasional smoking, occasional alcohol. ALLERGIES: Reviewed. MEDICATIONS: Home medication list was reviewed in detail and is as per the reconciliation list. PAST FAMILY HISTORY: Negative for renal disease or dialysis. REVIEW OF SYSTEMS: Tingling and some numbness, but otherwise, 12 systems reviewed and negative. PHYSICAL EXAMINATION: GENERAL: Morbidly obese young black female, awake, alert and oriented. No respiratory distress. VITAL SIGNS: Blood pressure is 128/85, pulse rate 57, temperature 36.6, 98% on room air. CHEST: Bilaterally clear to auscultation. CARDIOVASCULAR: S1 and S2, regular. ABDOMEN: Soft, nontender. EXTREMITIES: Show trace edema. LABORATORY TEST: Reviewed. Calcium was 7.8, hemoglobin 11.6, magnesium 1.7, phosphorus 5.7. PTH 14.4. ASSESSMENT AND PLAN: A 42-year-old female with Graves' disease, status post total thyroidectomy done 4 days ago, now presenting with tingling and numbness and hypocalcemia. 1. Hypocalcemia. 2. Hypomagnesemia. Hypocalcemia most likely from Injury/Inadvertent removal/ vascular interruption of parathyroid Gland during thyroid surgery. very common side effect after total thyroidectomy. At this point, the calcium is relatively decent comparing to her symptoms, but given the drop in her calcium was fairly fast, I guess it is possible to have symptoms. For the time being, we will correct the magnesium as well as calcium. Increase the calcium supplement to 3250 mg 4 times a day. There is no need of IV fluid and can be stopped. Check BMP, phosphorus and magnesium twice daily. As much as possible, we will try to manage with the formula that can be all oral medications. We should be able to maintain Ca and mag at stable ( not necessarily normal) level on oral meds before she is ready for Discharge. Thank you very much for the consult. Job ID: [id number] LONI
[2022-08-05] MEDS: CALCIUM CARBONATE 1250MG TAB PO SCH (22:22)
[2022-08-05] MEDS: CHOLECALCIFEROL 5,000 UNITS 125 MCG TAB PO SCH (22:23)
[2022-08-06] MEDS: oxyCODONE HCL IR 5 MG TAB (IMMEDIATE RELEASE) PO PRN ×2 (03:08→17:59)
[2022-08-06] MEDS: LEVOTHYROXINE SODIUM 100 MCG TABLET PO SCH (06:02)
[2022-08-06] MEDS: ATENOLOL 50 MG TABLET PO SCH (08:04)
[2022-08-06] MEDS: CEROVITE ADV FORMULA TAB PO SCH (08:05)
[2022-08-06] MEDS: CALCIUM CARBONATE 1250MG TAB PO SCH ×5 (08:06→21:18)
[2022-08-06] MEDS: FERROUS SULFATE 325 MG TAB PO SCH (08:06)
[2022-08-06] MEDS: CALCITRIOL 0.25 MCG CAPSULE PO SCH ×2 (08:07→21:21)
[2022-08-06] MEDS: CHOLECALCIFEROL 5,000 UNITS 125 MCG TAB PO SCH (08:07)
[2022-08-06] MEDS: ATOMOXETINE HCL 25 MG CAPSULE PO SCH (08:07)
[2022-08-06] MEDS: ACETAMINOPHEN 325 MG TAB PO PRN (08:13)
[2022-08-06 08:36] LABS: Basophils # (auto) 0.03 K/uL (0-0.2); Basophils % (auto) 0.4 %; Eosinophils # (auto) 0.26 K/uL (0-0.50); Eosinophils % (auto) 3.5 %; Hematocrit (blood only) 33.3 % (37.0-47.0); Immature Granulocytes # (auto) 0.03 K/uL (0.01-0.20); Immature Granulocytes % (auto) 0.4 %; Lymphocytes # (auto) 2.51 K/uL (1.2-3.4); Lymphocytes % (auto) 33.6 %; Mean Corpuscular Hemoglobin 29.3 pg (25.0-34.0); Mean Corpuscular Volume 88.8 fL (80.0-100.0); Mean Platelet Volume 10.1 fL (9.4-12.4); Monocytes # (auto) 0.34 K/uL (0.11-0.59); Monocytes % (auto) 4.6 %; Neutrophils % (auto) 57.5 %; Platelet Count 266 K/uL (130-400); RDW Coefficient of Variation 13.5 % (11.5-14.5); RDW Standard Deviation 43.9 fL (36.4-46.3); Red Blood Count 3.75 M/uL (4.20-5.40); White Blood Count 7.47 K/ul (4.8-10.8)
[2022-08-06 08:59] LABS: Calcium 7.9 mg/dl (8.6-10.3); Magnesium 1.6 mg/dl (1.7-2.4); Potassium 3.8 mmol/L (3.5-5.1)
[2022-08-06 09:05] LABS: BUN Creatinine Ratio 14.4 (10-20); Creatinine Clr Calc Pharmacy 96.5 ml/min; Est GFR (African American) 84.1 ml/min; Est GFR (Non-African American) 72.5 ml/min; Phosphorus 4.9 mg/dl (2.5-4.9)
[2022-08-06] MEDS ORDERED: MAGNESIUM SULFATE / D5W 1 GM/100 ML BAG IV ONE (09:30)
--- NOTE | 2022-08-06 10:08 | Newborn Progress Note ---
Date of Service August 06, 2022 Subjective S--no new issues but Ca still low PHYSICAL EXAMINATION: GENERAL: Morbidly obese young black female, awake, alert and oriented. No respiratory distress. VITAL SIGNS: Blood pressure is 128/85, pulse rate 57, temperature 36.6, 98% on room air. CHEST: Bilaterally clear to auscultation. CARDIOVASCULAR: S1 and S2, regular. ABDOMEN: Soft, nontender. EXTREMITIES: Show trace edema. LABORATORY TEST: Reviewed. ASSESSMENT AND PLAN: A 42-year-old female with Graves' disease, status post total thyroidectomy done 4 days ago, now presenting with tingling and numbness and hypocalcemia. 1. Hypocalcemia. 2. Hypomagnesemia. Hypocalcemia most likely from Injury/Inadvertent removal/ vascular interruption of parathyroid Gland during thyroid surgery. very common side effect after total thyroidectomy. Check BMP, phosphorus and magnesium twice daily. As much as possible, we will try to manage with the formula that can be all oral medications. We should be able to maintain Ca and mag at stable ( not necessarily normal) level on oral meds before she is ready for Discharge. Will avoid Iv calcium for today Start oral mag--slow mag 64 mg--1 tab tid. Height & Weight Length (height) cm: 5 ft 5 in Current Weight: 114.8 kg Results (NB) Laboratory Results (24 Hours) Laboratory Results - last 24 hr 08/05/22 08/05/22 08/06/22 14:11 20:27 07:59 WBC 7.47 RBC 3.75 L Hgb 11.0 L Hct 33.3 L MCV 88.8 MCH 29.3 MCHC 33.0 RDW Std Deviation 43.9 RDW Coeff of Huy 13.5 Plt Count 266 MPV 10.1 Immature Gran % (Auto) 0.4 Neut % (Auto) 57.5 Lymph % (Auto) 33.6 [place] % (Auto) 4.6 Eos % (Auto) 3.5 Baso % (Auto) 0.4 Neut # (Auto) 4.30 Lymph # (Auto) 2.51 [place] # (Auto) 0.34 Eos # (Auto) 0.26 Baso # (Auto) 0.03 Immature Gran # (Auto) 0.03 Sodium 140 Potassium 3.8 Chloride 106 Carbon Dioxide 28 Anion Gap 6 BUN 12 Creatinine 0.91 Est Cr Clr Drug Dosing 103.0 Est GFR ( Amer) 90.8 Est GFR (Non-Af Amer) 78.4 BUN/Creatinine Ratio 13.2 Glucose 116 H Calcium 7.4 L Ionized Calcium 1.04 L Phosphorus 4.8 Magnesium Total Creatine Kinase Albumin 3.6 08/06/22 08/06/22 07:59 07:59 WBC RBC Hgb Hct MCV MCH MCHC RDW Std Deviation RDW Coeff of Huy Plt Count MPV Immature Gran % (Auto) Neut % (Auto) Lymph % (Auto) [place] % (Auto) Eos % (Auto) Baso % (Auto) Neut # (Auto) Lymph # (Auto) [place] # (Auto) Eos # (Auto) Baso # (Auto) Immature Gran # (Auto) Sodium 141 Potassium 3.8 Chloride 105 Carbon Dioxide 30 Anion Gap 6 BUN 14 Creatinine 0.97 Est Cr Clr Drug Dosing 96.5 Est GFR ( Amer) 84.1 Est GFR (Non-Af Amer) 72.5 BUN/Creatinine Ratio 14.4 Glucose 101 H Calcium 7.9 L Ionized Calcium 1.02 L Phosphorus 4.9 Magnesium 1.6 L Total Creatine Kinase 204 H Albumin
--- NOTE | 2022-08-06 10:14 | Nephrology Progress Note ---
Date of Service August 06, 2022 Assessment & Plan Admission and Anticipated Discharge Date Admission Date: August 05, 2022 Subjective Subjective S--no new issues but Ca still low PHYSICAL EXAMINATION: GENERAL: Morbidly obese young black female, awake, alert and oriented. No respiratory distress. VITAL SIGNS: Blood pressure is 128/85, pulse rate 57, temperature 36.6, 98% on room air. CHEST: Bilaterally clear to auscultation. CARDIOVASCULAR: S1 and S2, regular. ABDOMEN: Soft, nontender. EXTREMITIES: Show trace edema. LABORATORY TEST: Reviewed. ASSESSMENT AND PLAN: A 42-year-old female with Graves' disease, status post total thyroidectomy done 4 days ago, now presenting with tingling and numbness and hypocalcemia. 1. Hypocalcemia. 2. Hypomagnesemia. Hypocalcemia most likely from Injury/Inadvertent removal/ vascular interruption of parathyroid Gland during thyroid surgery. very common side effect after total thyroidectomy. Check BMP, phosphorus and magnesium twice daily. As much as possible, we will try to manage with the formula that can be all oral medications. We should be able to maintain Ca and mag at stable ( not necessarily normal) level on oral meds before she is ready for Discharge. Will avoid Iv calcium for today Start oral mag--slow mag 64 mg--1 tab tid. Double the oral ca++ to 6.25 mg qid--10 gm elemental Ca per day. Avoid iv calcium and iv mag today Results & Data Vital Signs (Past 12 Hours) Vital Signs Temp Pulse Pulse Resp BP Pulse Ox O2 Del Method 08/06/22 07:57 58 L 08/06/22 07:38 36.7 C 56 L 16 113/78 100 Room Air 08/06/22 03:22 36.7 C 56 L 16 135/83 98 Room Air 08/06/22 00:00 59 L
[2022-08-06] MEDS: MAGNESIUM CHLORIDE W/CALCIUM 64MG DELAYED REL TAB PO SCH ×2 (14:39→21:19)
[2022-08-06 14:50] LABS: BUN Creatinine Ratio 14.4 (10-20); Calcium 7.9 mg/dl (8.6-10.3); Est GFR (Non-African American) 79.4 ml/min; Magnesium 1.9 mg/dl (1.7-2.4); Phosphorus 4.2 mg/dl (2.5-4.9); Potassium 3.6 mmol/L (3.5-5.1)
--- NOTE | 2022-08-06 17:14 | Hospitalist Progress Note ---
Date of Service August 06, 2022 Assessment & Plan (1) Hypocalcemia: Plan Hypocalcemia- Related to her recent total thyroidectomy for Graves' disease Status post IV calcium infusion-currently on oral calcium and vitamin D supplementation, calcium stable-being monitored. Nephrology managing. Check BMP, phosphorus and magnesium twice daily Per nephrology, avoid IV calcium and IV magnesium completely and try to manage with only oral medication Postsurgical hypothyroidism after total thyroidectomy for Graves' disease- continue thyroid supplementation. Hypomagnesemia-on supplementation Anxiety-on Zoloft DVT prophylaxis-subcu Lovenox Disposition-anticipate discharge in 1 to 2 days, pending stabilization of calcium with oral meds only Admission and Anticipated Discharge Date Admission Date: August 05, 2022 Subjective Patient was seen and examined at bedside. Her symptoms have resolved and she would like to go home. No more numbness tingling paresthesias. No nausea or vomiting. Subjective S--no new issues but Ca still low PHYSICAL EXAMINATION: GENERAL: Morbidly obese young black female, awake, alert and oriented. No respiratory distress. VITAL SIGNS: Blood pressure is 128/85, pulse rate 57, temperature 36.6, 98% on room air. CHEST: Bilaterally clear to auscultation. CARDIOVASCULAR: S1 and S2, regular. ABDOMEN: Soft, nontender. EXTREMITIES: Show trace edema. LABORATORY TEST: Reviewed. ASSESSMENT AND PLAN: A 42-year-old female with Graves' disease, status post total thyroidectomy done 4 days ago, now presenting with tingling and numbness and hypocalcemia. 1. Hypocalcemia. 2. Hypomagnesemia. Hypocalcemia most likely from Injury/Inadvertent removal/ vascular interruption of parathyroid Gland during thyroid surgery. very common side effect after total thyroidectomy. Check BMP, phosphorus and magnesium twice daily. As much as possible, we will try to manage with the formula that can be all oral medications. We should be able to maintain Ca and mag at stable ( not necessarily normal) level on oral meds before she is ready for Discharge. Will avoid Iv calcium for today Start oral mag--slow mag 64 mg--1 tab tid. Double the oral ca++ to 6.25 mg qid--10 gm elemental Ca per day. Avoid iv calcium and iv mag today Review of Systems Review of Systems: All systems reviewed & are unremarkable except as noted in Subjective Physical Exam Physical Exam: General: Lying comfortably in bed, not in distress, on room air HEENT: EOMI, RICK, MMM Neck: Incision from recent thyroid surgery anterior neck- covered with dressing Chest: Clear breath sounds bilaterally, no wheezes or crackles CVS: Regular rate and rhythm, normal heart sounds, no murmur Abdomen: Soft, non tender, not distended, normal bowel sounds Neuro: Awake, alert, oriented, conversing well, non focal Extremities: No cyanosis, clubbing or edema Results & Data Results & Data Vital Signs (Past 12 Hours) Vital Signs Temp Pulse Pulse Resp BP Pulse Ox O2 Del Method 08/06/22 15:52 71 08/06/22 14:54 36.8 C 69 16 122/78 98 Room Air 08/06/22 10:57 36.5 C 55 L 18 119/72 99 Room Air 08/06/22 07:57 58 L 08/06/22 07:38 36.7 C 56 L 16 113/78 100 Room Air Laboratory Results Short CBC 08/06/22 Range/Units 07:59 WBC 7.47 (4.8-10.8) K/ul Hgb 11.0 L (12.0-16.0) g/dl Hct 33.3 L (37.0-47.0) % Plt Count 266 (130-400) K/uL BMP 08/06/22 08/06/22 07:59 14:06 Sodium 141 138 Potassium 3.8 3.6 Chloride 105 104 Carbon Dioxide 30 27 BUN 14 13 Creatinine 0.97 0.90 Glucose 101 H 135 H Calcium 7.9 L 7.9 L Cardiac Enzymes 08/06/22 Range/Units 07:59 Total Creatine Kinase 204 H (26-192) U/L Medications Administered Current Inpatient Medications Acetaminophen (Acetaminophen 325 Mg Tab) 650 mg PO Q4H PRN PRN Reason: Pain or Fever Stop: 09/04/22 10:03 Last Admin: 08/06/22 08:13 Dose: 650 mg Atenolol (Atenolol 50 Mg Tablet) 50 mg PO HS ZABRINA Stop: 09/04/22 20:59 Last Admin: 08/06/22 08:04 Dose: Not Given Atomoxetine HCl (Atomoxetine Hcl 25 Mg Capsule) 25 mg PO QAM ZABRINA Stop: 09/04/22 10:14 Last Admin: 08/06/22 08:07 Dose: 25 mg Calcitriol (Calcitriol 0.25 Mcg Capsule) 0.25 mcg PO BID [facility] Stop: 09/04/22 10:14 Last Admin: 08/06/22 08:07 Dose: 0.25 mcg Calcium Carbonate (Calcium Carbonate 1250mg Tab) 6,250 mg PO QID [facility] Stop: 09/05/22 10:14 Last Admin: 08/06/22 11:03 Dose: Not Given Ferrous Sulfate (Ferrous Sulfate 325 Mg Tab) 325 mg PO QAM [facility] Stop: 09/04/22 10:14 Last Admin: 08/06/22 08:06 Dose: 325 mg Hydroxyzine HCl (Hydroxyzine Hcl 25 Mg Tab) 25 mg PO BID PRN PRN Reason: Anxiety Stop: 09/04/22 10:03 Promethazine HCl 12.5 mg/ (Sodium Chloride) 50.5 mls @ 202 mls/hr IV Q6H PRN PRN Reason: Nausea And Vomiting Stop: 09/04/22 10:03 Levothyroxine Sodium (Levothyroxine Sodium 100 Mcg Tablet) 100 mcg PO DAILYBB [facility] Stop: 09/04/22 11:59 Last Admin: 08/06/22 06:02 Dose: 100 mcg Magnesium Chloride (Magnesium Chloride W/Calcium 64mg Delayed Rel Tab) 64 mg PO TID [facility] Stop: 09/05/22 13:59 Last Admin: 08/06/22 14:39 Dose: 64 mg Morphine Sulfate (Morphine Sulfate 4 Mg/Ml 1 Ml Carp\Vial) 4 mg IV Q4H PRN PRN Reason: Pain Stop: 08/19/22 10:03 Multivitamins/Minerals (Cerovite Adv Formula Tab) 1 tab PO DAILY [facility] Stop: 09/04/22 10:14 Last Admin: 08/06/22 08:05 Dose: 1 tab Oxycodone HCl (Oxycodone Hcl Ir 5 Mg Tab (Immediate Release)) 5 mg PO Q6 PRN PRN Reason: pain,severe Stop: 08/19/22 10:03 Last Admin: 08/06/22 03:08 Dose: 5 mg Sertraline HCl (Sertraline Hcl 50 Mg Tablet) 50 mg PO HS [facility] Stop: 09/04/22 20:59 Last Admin: 08/05/22 20:26 Dose: 50 mg Vitamin D (Cholecalciferol 5,000 Units 125 Mcg Tab) 5,000 units PO QAM [facility] Stop: 09/04/22 21:19 Last Admin: 08/06/22 08:07 Dose: 5,000 units
[2022-08-06] MEDS: SERTRALINE HCL 50 MG TABLET PO SCH (21:19)
[2022-08-07] MEDS: oxyCODONE HCL IR 5 MG TAB (IMMEDIATE RELEASE) PO PRN (01:37)
[2022-08-07] MEDS: LEVOTHYROXINE SODIUM 100 MCG TABLET PO SCH (05:45)
[2022-08-07] MEDS: CHOLECALCIFEROL 5,000 UNITS 125 MCG TAB PO SCH (08:11)
[2022-08-07] MEDS: FERROUS SULFATE 325 MG TAB PO SCH (08:11)
[2022-08-07] MEDS: CALCITRIOL 0.25 MCG CAPSULE PO SCH (08:11)
[2022-08-07] MEDS: CEROVITE ADV FORMULA TAB PO SCH (08:11)
[2022-08-07] MEDS: ATOMOXETINE HCL 25 MG CAPSULE PO SCH (08:11)
[2022-08-07] MEDS: CALCIUM CARBONATE 1250MG TAB PO SCH (08:12)
[2022-08-07] MEDS: MAGNESIUM CHLORIDE W/CALCIUM 64MG DELAYED REL TAB PO SCH (08:13)
[2022-08-07 09:01] LABS: Hemoglobin 11.2 g/dl (12.0-16.0); Mean Corpuscular Hemoglobin 29.6 pg (25.0-34.0); Mean Corpuscular Hgb Conc 32.9 g/dL (32.0-36.0); Mean Corpuscular Volume 89.7 fL (80.0-100.0); Mean Platelet Volume 9.8 fL (9.4-12.4); Platelet Count 280 K/uL (130-400); RDW Coefficient of Variation 13.8 % (11.5-14.5); RDW Standard Deviation 45.1 fL (36.4-46.3); Red Blood Count 3.79 M/uL (4.20-5.40); White Blood Count 8.59 K/ul (4.8-10.8)
[2022-08-07 09:20] LABS: BUN Creatinine Ratio 11.5 (10-20); Calcium 8.5 mg/dl (8.6-10.3); Creatinine Clr Calc Pharmacy 97.7 ml/min; Est GFR (African American) 85.1 ml/min; Est GFR (Non-African American) 73.5 ml/min; Magnesium 1.8 mg/dl (1.7-2.4); Phosphorus 5.1 mg/dl (2.5-4.9); Potassium 3.9 mmol/L (3.5-5.1)
--- NOTE | 2022-08-07 10:13 | Nephrology Progress Note ---
Date of Service August 07, 2022 Assessment & Plan Admission and Anticipated Discharge Date Admission Date: August 05, 2022 Subjective Subjective S--no new issues but Ca did go up nicely. PHYSICAL EXAMINATION: GENERAL: Morbidly obese young black female, awake, alert and oriented. No respiratory distress. VITAL SIGNS: Blood pressure is 128/85, pulse rate 57, temperature 36.6, 98% on room air. CHEST: Bilaterally clear to auscultation. CARDIOVASCULAR: S1 and S2, regular. ABDOMEN: Soft, nontender. EXTREMITIES: Show trace edema. LABORATORY TEST: Reviewed. ASSESSMENT AND PLAN: A 42-year-old female with Graves' disease, status post total thyroidectomy done 4 days ago, now presenting with tingling and numbness and hypocalcemia. 1. Hypocalcemia. 2. Hypomagnesemia. Hypocalcemia most likely from Injury/Inadvertent removal/ vascular interruption of parathyroid Gland during thyroid surgery. very common side effect after total thyroidectomy. Check BMP, phosphorus and magnesium twice daily. As much as possible, we will try to manage with the formula that can be all oral medications. Continue oral mag--slow mag 64 mg--1 tab bid. Lower the Ca to 3125 mg qid for discharge home. next renal panel and mag should be done on Thursday and then twice a week till told otherwise. Continue Rocaltrol and Cholecalciferol current dose. very critical she does regular labs for titration of meds. Results & Data Vital Signs (Past 12 Hours) Vital Signs Temp Pulse Pulse Resp BP Pulse Ox O2 Del Method 08/07/22 08:45 Room Air 08/07/22 07:28 37 C 71 17 120/69 95 Room Air 08/07/22 07:00 58 L 08/07/22 04:00 37.1 C 65 18 120/80 97 Room Air 08/06/22 22:35 73
[2022-08-07] MEDS: ACETAMINOPHEN 325 MG TAB PO PRN (10:34)
--- NOTE | 2022-08-07 11:36 | Discharge Summary ---
Date of Service August 07, 2022 Admission HPI Per Admitting Provider History obtained from patient, family, and records. Medical history significant for Graves' disease status post recent total thyroidectomy, postsurgical hypothyroidism, prediabetes, anxiety/mood disorder, ongoing tobacco abuse. 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 Recent overnight confinement at [facility] under ENT service for total thyroidectomy for Graves' disease. Patient discharged on new levothyroxine Rx for postsurgical hypothyroidism and Tums for possible hypocalcemia. Patient instructed to watch out for hypocalcemia manifesting as tingling, numbne ss symptoms; bleeding and infection. Last night, patient noted generalized tingling despite compliance with Tums regimen. No actual chest pain, SOB, neck pain. Transient right leg pain. Patient consulted ER for worsening symptoms. Patient currently feels much better after IV calcium administration at the ER. 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 Admission Exam Per Admitting Provider GENERAL: Comfortable, morbidly obese, pleasant, no respiratory distress SKIN: Normal color, warm HEENT: [place] palpebral conjunctivae, no ptosis, dry buccal mucosa NECK : Supple, short neck, no tenderness CHEST : CTA, no tenderness HEART : Bradycardic, no obvious murmurs ABDOMEN: Some distention, nontender EXTREMITIES : Minimal LE swelling, no LE tenderness, no other conspicuous deformities noted NEUROLOGIC : Coherent, no facial asymmetry, no other gross focality Principal Diagnosis Hypocalcemia after total thyroidectomy for Graves' disease, hypomagnesemia Discharge Exam General: Sitting comfortably in bed, not in distress, on room air HEENT: EOMI, RICK, MMM Neck: Incision from recent thyroid surgery anterior neck- covered with dressing Chest: Clear breath sounds bilaterally, no wheezes or crackles CVS: Regular rate and rhythm, normal heart sounds, no murmur Abdomen: Soft, non tender, not distended, normal bowel sounds Neuro: Awake, alert, oriented, conversing well, non focal Extremities: No cyanosis, clubbing or edema Discharge Data Allergies Allergy/AdvReac Type Severity Reaction Status Date / Time rosa m Allergy Severe severe Verified 09/29/21 20:50 itching pineapple Allergy Intermediate Swelling Verified 09/29/21 20:50 of Lip/Tongue/Throat Consultations 08/05/22 04:22 ED Decision to Admit Stat 08/05/22 12:26 Consult Nephrology Routine Ordered Studies 08/05/22 05:52 US venous duplex leg [US venous doppler LE RT] Stat Laboratory Results WBC 8.59 K/ul (4.8-10.8) 08/07/22 08:33 RBC 3.79 M/uL (4.20-5.40) L 08/07/22 08:33 Hgb 11.2 g/dl (12.0-16.0) L 08/07/22 08:33 Hct 34.0 % (37.0-47.0) L 08/07/22 08:33 MCV 89.7 fL (80.0-100.0) 08/07/22 08:33 MCH 29.6 pg (25.0-34.0) 08/07/22 08:33 MCHC 32.9 g/dL (32.0-36.0) 08/07/22 08:33 RDW Std Deviation 45.1 fL (36.4-46.3) 08/07/22 08:33 RDW Coeff of Huy 13.8 % (11.5-14.5) 08/07/22 08:33 Plt Count 280 K/uL (130-400) 08/07/22 08:33 MPV 9.8 fL (9.4-12.4) 08/07/22 08:33 Immature Gran % (Auto) 0.4 % 08/06/22 07:59 Neut % (Auto) 57.5 % 08/06/22 07:59 Lymph % (Auto) 33.6 % 08/06/22 07:59 [place] % (Auto) 4.6 % 08/06/22 07:59 Eos % (Auto) 3.5 % 08/06/22 07:59 Baso % (Auto) 0.4 % 08/06/22 07:59 Neut # (Auto) 4.30 K/uL (1.40-6.50) 08/06/22 07:59 Lymph # (Auto) 2.51 K/uL (1.2-3.4) 08/06/22 07:59 [place] # (Auto) 0.34 K/uL (0.11-0.59) 08/06/22 07:59 Eos # (Auto) 0.26 K/uL (0-0.50) 08/06/22 07:59 Baso # (Auto) 0.03 K/uL (0-0.2) 08/06/22 07:59 Immature Gran # (Auto) 0.03 K/uL (0.01-0.20) 08/06/22 07:59 Sodium 140 mmol/L (136-145) 08/07/22 08:33 Potassium 3.9 mmol/L (3.5-5.1) 08/07/22 08:33 Chloride 104 mmol/L (98-107) 08/07/22 08:33 Carbon Dioxide 30 mmol/L (21-32) 08/07/22 08:33 Anion Gap 6 (3-11) 08/07/22 08:33 BUN 11 mg/dl (6-23) 08/07/22 08:33 Creatinine 0.96 mg/dl (0.6-1.2) 08/07/22 08:33 Est Cr Clr Drug Dosing 97.7 ml/min 08/07/22 08:33 Est GFR ( Amer) 85.1 ml/min 08/07/22 08:33 Est GFR (Non-Af Amer) 73.5 ml/min 08/07/22 08:33 BUN/Creatinine Ratio 11.5 (10-20) 08/07/22 08:33 Glucose 97 mg/dl (70-99(Fasting)) 08/07/22 08:33 Calcium 8.5 mg/dl (8.6-10.3) L 08/07/22 08:33 Ionized Calcium 1.11 mmol/L (1.12-1.32) L 08/07/22 08:33 Phosphorus 5.1 mg/dl (2.5-4.9) H 08/07/22 08:33 Magnesium 1.8 mg/dl (1.7-2.4) 08/07/22 08:33 Total Bilirubin 0.3 mg/dl (0.2-1.0) 08/05/22 02:32 AST 20 U/L (13-39) 08/05/22 02:32 ALT 15 U/L (7-52) 08/05/22 02:32 Alkaline Phosphatase 35 U/L (34-104) 08/05/22 02:32 Total Creatine Kinase 204 U/L (26-192) H 08/06/22 07:59 Troponin I High Sens 3.2 pg/ml (0-14) 08/05/22 02:32 Total Protein 6.9 gm/dl (6.0-8.3) 08/05/22 02:32 Albumin 3.6 gm/dl (3.4-5.0) 08/05/22 14:11 Globulin 3.1 gm/dl (2.5-4.0) 08/05/22 02:32 Albumin/Globulin Ratio 1.2 (0.9-2) 08/05/22 02:32 TSH 14.304 uIu/ml (0.300-4.500) H 08/05/22 02:32 Free T4 0.83 ng/dl (0.61-1.60) 08/05/22 02:32 PTH Intact 14.4 pg/ml (12.0-88.0) 08/05/22 02:50 SARS-CoV-2, RNA, NAAT NEGATIVE (NEGATIVE) 08/05/22 02:35 Impressions Chest X-Ray 08/05/22 02:14 XR chest 1V portable CLINICAL HISTORY: Weakness. COMPARISON STUDY: Chest radiograph September 29, 2021. FINDINGS: There is no pneumothorax. There may be trace bilateral pleural effusions. There is pulmonary vascular congestion without overt pulmonary edema. Cardiac size is at upper limits of normal. No consolidation to suggest pn eumonia. IMPRESSION: 1. Pulmonary vascular congestion without overt pulmonary edema. 2. Suspected trace bilateral pleural effusions. . ACT 112: Negative or not required by law. Electronically signed by: Alden Paz M.D. 08/05/2022 6:52 AM Venous Doppler Study 08/05/22 05:52 RIGHT LOWER EXTREMITY VENOUS DOPPLER CLINICAL HISTORY: Right lower extremity pain. COMPARISON STUDY: Bilateral lower extremity venous Doppler ultrasound July 04, 2021. TECHNIQUE: Sonography of the deep venous system of the right lower extremity was performed. Compression and augmentation were evaluated. FINDINGS: The right common femoral, superficial femoral and popliteal veins were compressible. Augmentation was normal. Flow was shown within the deep calf vessels. IMPRESSION: No evidence of deep venous thrombus within the right lower extremity. ACT 112: Negative or not required by law. Electronically signed by: Alden Paz M.D. 08/05/2022 8:25 AM Hospital Course (1) Hypocalcemia: Plan Patient presented with symptomatic hypocalcemia after total thyroidectomy for Graves' disease. She received IV calcium and was then managed with oral supplementation. Also continued on vitamin D and magnesium supplementation. Her symptoms have completely resolved and her labs have improved and stabilized. She was seen by nephrology and recommendations noted. She is comfortable and stable for discharge home with calcium, magnesium and vitamin D supplementation with close outpatient lab twice a week which will be ordered and followed by nephrology, for further adjustment of her medications. She will also follow-up with her ENT surgeons. Work excuse was provided for labs at her request. Hypocalcemia- Related to her recent total thyroidectomy for Graves' disease Status post IV calcium infusion-currently on oral calcium and vitamin D supplementation, calcium improved and stable. Nephrology recommends as noted. Continue supplementation and follow-up with outpatient labs with nephrology for further management Postsurgical hypothyroidism after total thyroidectomy for Graves' disease- continue thyroid supplementation. Hypomagnesemia-resolved, continue supplementation and outpatient lab Anxiety-on Zoloft Total Time Total Time Spent Total Time Spent (In Minutes): 38 Discharge Plan Discharge Items Patient Disposition: Home - Self-Care Reason For Visit: HYPOCALCEMIA Discharge Diagnosis: Hypocalcemia, Hypomagnesemia, s/p total thyroidectomy for Grave's disease Condition on Discharge: Good Activity: Resume your previous activity Non-emergency contact: Primary Care Provider and Baker Operator Automatic Call non-emergency contact if: you have any medication questions and your symptoms worsen Follow-up/Referrals: Becca Tobias MD [Primary Care Provider] - (Date & Time 08/11/2022 2:00 PM Provider Becca Tobias MD Department [facility] ) Diet: Regular Addtl Attending Provider Instructions: Continue the supplements as prescribed It is very important to get the labs done on Thursday and and nephrology will follow up on the labs Follow up with your family doctor and ENT surgeon Pending Studies at Discharge: No Stand-Alone Forms: My [employer], Smoking Cessation Medications and DC Order Prescriptions: New Mag 64 64 mg Tablet,Delayed Release (Dr/Ec) 64 mg PO BID Qty: 30 0RF cholecalciferol (vitamin D3) 125 mcg (5,000 unit) Tablet 5,000 unit PO QAM Qty: 30 0RF calcium carbonate-vitamin D3 [Os-Timur 500 + D3] 500 mg-15 mcg (600 unit) Tablet 2.5 tab PO QID Qty: 100 0RF Continued ferrous sulfate 325 mg (65 mg iron) tablet 325 mg PO QAM levothyroxine 100 mcg tablet 100 mcg PO DAILYBB Rx Instructions: take at least 30 min prior to breakfast or other meds oxycodone 5 mg tablet 5 mg PO Q6 PRN (Reason: pain,severe) Rx Instructions: take up to 5 days start 08/02/22 end date 08/07/22 atenolol 50 mg tablet 50 mg PO [facility] hydroxyzine HCl 25 mg tablet 25 mg PO BID PRN (Reason: Anxiety) sertraline 50 mg tablet 50 mg PO QAM multivitamin Tablet 1 tab PO DAILY Rx Instructions: AFIA vitamin atomoxetine 25 mg capsule 25 mg PO QAM Daily Multiple For Women 18 mg iron-400 mcg-500 mg Ca Tablet 1 tab PO DAILY Rx Instructions: ROBYN womens daily vitamin calcitriol 0.25 mcg capsule 0.25 mcg PO AMPM Qty: 30 0RF Rx Instructions: take for 14 days start 08/02/22 end date 08/16/22 Discontinued calcium carbonate [Tums E-X] 300 mg (750 mg) Tablet,Chewable 600 mg PO BID Rx Instructions: take 2 tablets at noon & in the evening for 14 days start 08/02/22 end date 08/16/22 Discharge Orders: Discharge Order (Routine); Ordered 08/07/22 Ordered By: Du Hinkle Admission Data Admit Date/Time: 08/05/22 05:56 Attending Provider: Du Hinkle Admit Provider: Andres Chambers Primary Care Provider: Becca Tobias Other Providers: Andres Chambers ; Pavel Jimenez Other Interventions: Discharge Summary Assessment (RN) Last Done: 08/07/22 10:35
[2022-08-07] MEDS ORDERED: CALCIUM CARBONATE 1250MG TAB PO SCH (13:00)
== END 2022-08-07 11:06 | disposition home or self-care (01) | DRG 641 ==
LOC: ED 01:58 → SUATTDRO 05:56 → 2N 05:56